=== PATIENT | female | born 1950 | race Caucasian/White ===

== ENCOUNTER 2018-02-23 18:40 | Emergency (ER) | payer OTHER ==
[~2018-02-23] VITALS: Ht 152.4 cm; Wt 68.2 kg
[~2018-02-23 18:40] MED LIST: ADVAIR 500/501 DISK INH; DESERYL100 MG PO; LEXAPRO20 MG PO; MULTIPLE VITAMI1 TA1 PO; OMEPRAZOLE40 MG PO; SINGULAIR10 MG PO; SPIRIVA18 MCG INH; TORADOL10 MG PO
[2018-02-23 19:10] VITALS: BP 159/109; Ht 152.4 cm; Wt 68.2 kg
[2018-02-23] MEDS ORDERED: LOVASTATIN10 MG PO (19:13)
[2018-02-23] MEDS ORDERED: BENICAR20 MG PO (19:13)
[2018-02-23] MEDS ORDERED: CLARITIN 10 MG10 MG PO (19:14)
[2018-02-23] MEDS ORDERED: PREDNISOLON5 MG/5 ML PO (19:14)
[2018-02-23] MEDS ORDERED: ULTRAM50 MG PO (19:14)
== END 2018-02-23 20:00 | disposition left against medical advice (07) ==
LOC: D.ER 18:40
DX: R21 Rash and other nonspecific skin eruption (principal)

== ENCOUNTER 2018-09-28 07:33 | Emergency (ER) | payer OTHER ==
[~2018-09-28 07:33] MED LIST changes: +BENICAR20 MG PO; +CLARITIN 10 MG10 MG PO; +LOVASTATIN10 MG PO; +PREDNISOLON5 MG/5 ML PO; +ULTRAM50 MG PO
[2018-09-28 07:34] VITALS: BMI 29.9
[2018-09-28] MEDS ORDERED: STERAPRED DS 1210 MG PO (07:48)
[2018-09-28] MEDS ORDERED: STERAPRED 5MG 65 M1 PO (07:49)
[2018-09-28] MEDS ORDERED: COSENTYX (07:52)
[2018-09-28] MEDS ORDERED: DILAUDID4 MG PO (08:07)
[2018-09-28 10:49] VITALS: BP 134/68
== END 2018-09-28 10:08 | disposition home or self-care (01) ==
LOC: D.ER 07:33
DX: M54.9 Dorsalgia, unspecified (principal)

== ENCOUNTER 2018-10-12 13:43 | Inpatient (IN) | payer OTHER ==
[~2018-10-12] VITALS: Ht 152.4 cm; Wt 68.0 kg
[~2018-10-12 13:43] MED LIST changes: +COSENTYX; +DILAUDID4 MG PO; +STERAPRED 5MG 65 M1 PO; +STERAPRED DS 1210 MG PO
[2018-10-12 15:53] VITALS: BP 150/94; BMI 29.3
--- NOTE | 2018-10-12 16:05 | NUR ---
PATIENT ADMITTED TO ROOM 2224. ALERT AND ORIENTED X 3. LUNGS DIMINISHED BILATERALLY IN ALL DASILVA. HEART SOUNDS S1 AND S2 HEARD IN ALL DASILVA. BOWEL SOUNDS ACTIVE X 4. SKIN INTACT WITHOUT REDNESS. DENIES PAIN. DENIES NEEDS. REQUESTED TO STAY IN STREET CLOTHES. DENIES NEEDS. BED LOW. CALL CHINCHILLA AND PERSONAL ITEMS IN REACH. WILL CONTINUE TO MONITOR.
[2018-10-12 16:26] LABS: BASOPHILS 0.1 % (0-2); EOSINOPHILS 0.1 % (0-7); HEMATOCRIT 41.5 % (36.0-48.0); HEMOGLOBIN 13.6 g/dL (12-16); IMMATURE GRANULOCYTES 1.8 % (0-5); LYMPHOCYTES 9.3 % (15-50); MCH 27.4 pg (26.0-34.0); MCHC 32.8 g/dL (31.0-37.0); MCV 83.5 fL (80.0-100.0); MEAN PLATELET VOLUME 8.8 fL (7.4-10.4); MONOCYTES 3.2 % (2-11); NEUTROPHILS 85.5 % (40-80); RBC 4.97 10x6/uL (4.00-5.40); RDW 17.6 % (11.5-14.5); WBC 13.9 10x3/uL (4.8-10.8)
[2018-10-12 16:30] LABS: PLATELET COUNT 268 10x3/uL (130-400)
[2018-10-12 16:35] LABS: ALKALINE PHOSPHATASE 77 U/L (46-116); ALT (SGPT) 20 U/L (10-68); BILIRUBIN - TOTAL 0.31 mg/dL (0.2-1.3); CALC OSMOLALITY 281 mosm/kg (275-300); CARBON DIOXIDE 27.8 mmol/L (21.0-32.0); CHLORIDE - SERUM 103 mmol/L (98-107); CREATININE - SERUM 0.8 mg/dL (0.6-1.3); GLUCOSE 133 mg/dL (74-106); POTASSIUM - SERUM 4.5 mmol/L (3.5-5.1); PROTEIN - SERUM 7.6 g/dL (6.4-8.2); SODIUM 139 mmol/L (136-145); UREA NITROGEN 17 mg/dL (7-18); eGFR NON AFRICAN AMERICAN 75 mL/min (90-120)
--- NOTE | 2018-10-12 16:40 | NUR ---
PATIENT BSCDS PLACED ON AND WORKING. UA COLLECTED AND TAKEN TO LAB.
[2018-10-12 17:07] LABS: APPEARANCE CLEAR (CLEAR); BILIRUBIN NEGATIVE (NEGATIVE); COLOR STRAW (YELLOW); GLUCOSE NEGATIVE (NEGATIVE); KETONE NEGATIVE (NEGATIVE); NITRITE NEGATIVE (NEGATIVE); PROTEIN NEGATIVE (NEGATIVE); UROBILINOGEN NORMAL (NORMAL)
--- NOTE | 2018-10-12 17:39 | NUR ---
IV PULLED OUT OF JAIME. RESITED TO RIGHT HAND. DENIES NEEDS. AT BEDSIDE.
[2018-10-12 20:00] VITALS: BP 144/79
[2018-10-12 21:02] LABS: CKMB 0.7 U/L (0.0-3.6); CREATINE KINASE 50 UL (21-215); TROPONIN-I < 0.017 ng/mL (0.000-0.060)
--- NOTE | 2018-10-12 21:45 | NUR ---
PT ALERT & ORIENTED. WHILE ASSESSING PT, FOUND PRESCRIPTION BOTTLE OF DILAUDID 4 MG PILLS (4 COUNT) AND BOTTLE OF TYLENOL UNDER PT'S BLANKET NEXT TO HER BODY. PT SAID HER BROUGHT THE MEDICINE UP TO HER BECAUSE SHE HADN'T GOT ANY PAIN MEDICINE WHEN SHE FIRST WAS ADMITTED EARLIER THIS DAY. HOME MED COUNTED AND SENT TO PHARMACY IN [place]. INFORMED PT SHE CAN GET IT BACK FROM PHARMACY UPON DISCHARGE.
[2018-10-13] VITALS: BP 116/72
[2018-10-13 04:00] VITALS: BP 125/68
[2018-10-13 05:52] LABS: BASOPHILS 0.1 % (0-2); HEMOGLOBIN 12.5 g/dL (12-16); IMMATURE GRANULOCYTES 1.7 % (0-5); LYMPHOCYTES 13.7 % (15-50); MCH 26.4 pg (26.0-34.0); MCHC 31.3 g/dL (31.0-37.0); MCV 84.6 fL (80.0-100.0); MEAN PLATELET VOLUME 8.9 fL (7.4-10.4); MONOCYTES 7.4 % (2-11); NEUTROPHILS 76.1 % (40-80); PLATELET COUNT 275 10x3/uL (130-400); RBC 4.73 10x6/uL (4.00-5.40); RDW 17.9 % (11.5-14.5); WBC 11.6 10x3/uL (4.8-10.8)
[2018-10-13 06:08] LABS: ANION GAP 13.7 mmol/L (8-16); CALCIUM 9.1 mg/dL (8.5-10.1); CARBON DIOXIDE 25.8 mmol/L (21.0-32.0); MAGNESIUM - SERUM 1.9 mg/dL (1.8-2.4); PHOSPHOROUS 3.3 mg/dL (2.5-4.9)
[2018-10-13 06:11] LABS: POTASSIUM - SERUM 3.5 mmol/L (3.5-5.1)
[2018-10-13 09:12] VITALS: BP 144/75
[2018-10-13 12:53] VITALS: BP 98/54
[2018-10-13 13:14] VITALS: Ht 152.4 cm; Wt 68.0 kg
[2018-10-13 17:45] VITALS: BP 97/55
--- NOTE | 2018-10-13 18:34 | NUR ---
I have reviewed this patient and I concur with the Shift Assessment completed by the Licensed Practical Nurse today this shift.
[2018-10-13 20:00] VITALS: BP 81/48
[2018-10-14] VITALS: BP 84/49
--- NOTE | 2018-10-14 03:25 | NUR ---
PT C/O BACK PAIN 10/01. GAVE DILAUDID 0.5 MG IV PUSH. COUGH NOT PRODUCTIVIE THIS SHIFT, UNABLE TO OBTAIN SPECIMEN. NO OTHER NEEDS. WILL CONTINUE TO MONITOR.
[2018-10-14 04:00] VITALS: BP 91/57
[2018-10-14 05:07] LABS: BASOPHILS 0.1 % (0-2); EOSINOPHILS 2.3 % (0-7); HEMATOCRIT 36.3 % (36.0-48.0); HEMOGLOBIN 11.4 g/dL (12-16); IMMATURE GRANULOCYTES 1.4 % (0-5); LYMPHOCYTES 10.8 % (15-50); MCH 26.8 pg (26.0-34.0); MCHC 31.4 g/dL (31.0-37.0); MCV 85.4 fL (80.0-100.0); MEAN PLATELET VOLUME 8.7 fL (7.4-10.4); MONOCYTES 6.2 % (2-11); NEUTROPHILS 79.2 % (40-80); PLATELET COUNT 234 10x3/uL (130-400); RBC 4.25 10x6/uL (4.00-5.40); RDW 18.1 % (11.5-14.5); WBC 13.8 10x3/uL (4.8-10.8)
[2018-10-14 05:17] LABS: ANION GAP 12.6 mmol/L (8-16); CALCIUM 9.3 mg/dL (8.5-10.1); CARBON DIOXIDE 24.6 mmol/L (21.0-32.0); CREATININE - SERUM 1.1 mg/dL (0.6-1.3); MAGNESIUM - SERUM 1.8 mg/dL (1.8-2.4)
[2018-10-14 05:18] LABS: PHOSPHOROUS 4.3 mg/dL (2.5-4.9); POTASSIUM - SERUM 4.2 mmol/L (3.5-5.1)
[2018-10-14 09:14] VITALS: BP 106/66
--- NOTE | 2018-10-14 09:20 | NUR ---
PT BREATHING VERY RASPY AND LOUD, HEARD HER FROM NURSING STATION WENT TO PT ROOM TO CHECK ON PT AND PT STATED SHE WAS UNABLE TO BREATHE AND NEEDS HELP, TOOK PT PULSE OX AND READING IS AT 78% CALLED FOR NC TUBING AND CALLED A RAPID. CALLED MONITORS AND WAS ADVISED BY AGRICULTURAL SYSTEMS SPECIALIST JAN PT HR IS AT 156. ADVISED NURSE YOLANDA RN IN ROOM PT HR. PT PLACED ON VS MACHINE AND JACQUELINE WITH RESPIRATORY WELL ICU NURSE AND MEDICAL BILLING CODER IN ROOM WITH PT NOW
--- NOTE | 2018-10-14 10:00 | NUR ---
PATIENT RESTING WITH NO DISTRESS, CL IN REACH
[2018-10-14 12:51] VITALS: BP 107/57
[2018-10-14 16:52] VITALS: BP 139/76
[2018-10-14 20:00] VITALS: BP 157/82
--- NOTE | 2018-10-14 22:25 | NUR ---
PT ALERT & ORIENTED. RATES PAIN 06/03. GAVE SCHEDULED MEDS. PT SHORT OF BREATH WITH LITTLE EXERTION. ASSISTED PT UP TO BEDSIDE COMMODE TO VOID. PULLED UP IN BED. NO OTHER NEEDS. WILL CONTINUE TO MONITOR.
[2018-10-15 04:00] VITALS: BP 109/60
[2018-10-15 06:05] LABS: BASOPHILS 0.1 % (0-2); EOSINOPHILS 0.2 % (0-7); HEMOGLOBIN 10.1 g/dL (12-16); IMMATURE GRANULOCYTES 0.9 % (0-5); LYMPHOCYTES 7.4 % (15-50); MCH 26.7 pg (26.0-34.0); MCHC 31.6 g/dL (31.0-37.0); MCV 84.7 fL (80.0-100.0); MEAN PLATELET VOLUME 8.8 fL (7.4-10.4); NEUTROPHILS 85.4 % (40-80); PLATELET COUNT 226 10x3/uL (130-400); RBC 3.78 10x6/uL (4.00-5.40); WBC 14.9 10x3/uL (4.8-10.8)
[2018-10-15 06:16] LABS: CALC OSMOLALITY 276 mosm/kg (275-300); CALCIUM 9.2 mg/dL (8.5-10.1); CARBON DIOXIDE 24.3 mmol/L (21.0-32.0); CHLORIDE - SERUM 106 mmol/L (98-107); GLUCOSE 102 mg/dL (74-106); MAGNESIUM - SERUM 1.7 mg/dL (1.8-2.4); SODIUM 138 mmol/L (136-145); UREA NITROGEN 16 mg/dL (7-18); eGFR NON AFRICAN AMERICAN 88 mL/min (90-120)
[2018-10-15 06:17] LABS: CREATININE - SERUM 0.7 mg/dL (0.6-1.3)
[2018-10-15 06:18] LABS: POTASSIUM - SERUM 4.6 mmol/L (3.5-5.1)
[2018-10-15 09:06] VITALS: BP 139/72
[2018-10-15 13:44] VITALS: BP 104/55
--- NOTE | 2018-10-15 15:31 | MORECARE ---
CASE MANAGEMENT DISCHARGE SUMMARY PATIENT: VAN FARIA UNIT: [id number] ADM DATE: 10/12/18 AGE: 68 : 49 SEX: F ROOM/BED: D.2224 AUTHOR: MARISOL ARMENDARIZ PHYSICIAN: REFERRING PHYSICIAN: ADRIÁN DE MD DATE OF SERVICE: 10/15/18 Discharge Plan Patient Name: VAN FARIA [facility] [facility] 1950 Planned Disposition: Home Anticipated Discharge Date: Discharge Date: Expected LOS: Initial Reviewer: [email or web address] Initial Review Date: 10/15/2018 Generated: 10/15/18 4:31 pm DCPIA - Discharge Planning Initial Assessment Updated by [email or web address]: Jessica Coyne on 10/15/18 3:30 pm * Is the patient Alert and Oriented? Yes * How many steps to enter\exit or inside your home? 3/0 * PCP Dr. Solorzano * Pharmacy [facility] on [address] * Preadmission Environment Home with Family * ADLs Partial Dependent * Partial ADLs (Assistance needed) Ambulation Bathing * Equipment Bedside Commode Nebulizer Walker * List name and contact numbers for known caregivers / representatives who currently or will assist patient after discharge: Wade Faria - spouse - H [phone] * Verbal permission to speak to the caregivers and representatives has been obtained from the patient. Yes * Community resources currently utilized Private Duty Care * Please name any agencies selected above. [facility] * Additional services required to return to the preadmission environment? Yes * Can the patient safely return to the preadmission environment? Yes * Has this patient been hospitalized within the prior 30 days at any hospital? No Patient Name: VAN FARIA Page [phone] at 1531 All edits/amendments must be made on the electronic document DICTATION DATE: 10/15/181530 FUNERAL DIRECTOR/EMBALMER/OWNER: HARMEET 10/15/181530 RPT#: [id number] DC DATE: STATUS: ADM IN [facility] [address] [place] [address] END OF REPORT
--- NOTE | 2018-10-15 15:40 | MORECARE ---
CASE MANAGEMENT DISCHARGE SUMMARY PATIENT: VAN FARIA UNIT: [id number] ADM DATE: 10/12/18 AGE: 68 : 49 SEX: F ROOM/BED: D.2224 AUTHOR: MARCELLO,DOC PHYSICIAN: REFERRING PHYSICIAN: ADRIÁN DE MD DATE OF SERVICE: 10/15/18 Discharge Plan Patient Name: VAN FARIA Facility: [facility]:[place] : 1950 Planned Disposition: Home Anticipated Discharge Date: Discharge Date: Expected LOS: Initial Reviewer: [email or web address] Initial Review Date: 10/15/2018 Generated: 10/15/18 4:40 pm Comments DCP- Discharge Planning Updated by [email or web address]: Jessica Coyne on 10/15/18 2:[address] Patient Name: VAN FARIA Admission Status: Elective Accout number: [id number] Admission Date: 10-12-2018 : 1950 Admission Diagnosis: Attending: ADRIÁN DE Current LOS: 3 Anticipated DC Date: Planned Disposition: Home Primary Insurance: [employer] CM met with patient to complete initial dc planning assessment. CM educated patient on the CM role and verbal consent given by patient to complete assessment. Patient lives at home with her spouse. At discharge patient plans to return and feels this is a safe discharge. CM discussed availability of home health, rehab services, and medical equipment. Patient states she has a career technology teacher from [facility] that comes in for 3-4 hours a day Monday through Monday. She declines need for home health. She states she may need oxygen and ANDREA signed for [facility] (states she received her nebulizer from [facility]). She will need a walk test to test for home oxygen 2 days prior to discharge. CM will continue to follow and will assist as needed with dc plans/needs. Discharge Planning Comments: Medical Officer: Jessica Coyne DCPIA - Discharge Planning Initial Assessment Updated by [email or web address]: Jessica Coyne on 10/15/18 3:30 pm * Is the patient Alert and Oriented? Yes * How many steps to enter\exit or inside your home? 3/0 * PCP Dr. Solorzano * Pharmacy [facility] [address] * Preadmission Environment Home with Family * ADLs Partial Dependent * Partial ADLs (Assistance needed) Ambulation Bathing * Equipment Bedside Commode Nebulizer Walker * List name and contact numbers for known caregivers / representatives who currently or will assist patient after discharge: Wade Faria - spouse - H [phone] C [phone] * Verbal permission to speak to the caregivers and representatives has been obtained from the patient. Yes * Community resources currently utilized Private Duty Care * Please name any agencies selected above. [facility] * Additional services required to return to the preadmission environment? Yes * Can the patient safely return to the preadmission environment? Yes * Has this patient been hospitalized within the prior 30 days at any hospital? No Coverage Notice Reviewer: [id number] Kassi Coyne Notice Issued Date-Time: 10/15/2018 15:33 Notice Type: Patient Choice Letter Notice Delivered To: Patient Relationship to Patient: Self Sonar Watchstander Name: Delivery Method: HAND - Hand Delivered Maru Days: Prior Verbal Notification: Recipient Understood Notice: Yes Recipient Signature: Yes Med Rec Note Co-signed by Attending: Coverage Notice Comment: ANDREA for Andrew Tinsley DP export: 10/15/18 2:31 p Patient Name: VAN FARIA Page [id number] at 1540 All edits/amendments must be made on the electronic document DICTATION DATE: 10/15/181538 BLASTING CLAY MINER: HARMEET 10/15/181538 RPT#: [id number] DC DATE: STATUS: ADM IN [facility] [address] [place] [address] END OF REPORT
[2018-10-15 17:13] VITALS: BP 168/69
[2018-10-15 20:00] VITALS: BP 168/78
[2018-10-16 04:00] VITALS: BP 129/69
[2018-10-16 04:28] LABS: BASOPHILS 0 % (0-2); EOSINOPHILS 0 % (0-7); HEMATOCRIT 32.9 % (36.0-48.0); HEMOGLOBIN 10.4 g/dL (12-16); LYMPHOCYTES 3.9 % (15-50); MCH 26.9 pg (26.0-34.0); MCHC 31.6 g/dL (31.0-37.0); MEAN PLATELET VOLUME 8.7 fL (7.4-10.4); MONOCYTES 1.3 % (2-11); NEUTROPHILS 93.8 % (40-80); PLATELET COUNT 208 10x3/uL (130-400); RBC 3.87 10x6/uL (4.00-5.40); RDW 17.6 % (11.5-14.5); WBC 12.7 10x3/uL (4.8-10.8)
[2018-10-16 04:44] LABS: CALCIUM 8.8 mg/dL (8.5-10.1); CARBON DIOXIDE 29.3 mmol/L (21.0-32.0); CHLORIDE - SERUM 107 mmol/L (98-107); CREATININE - SERUM 0.7 mg/dL (0.6-1.3); MAGNESIUM - SERUM 1.8 mg/dL (1.8-2.4); POTASSIUM - SERUM 4.3 mmol/L (3.5-5.1); SODIUM 142 mmol/L (136-145); eGFR NON AFRICAN AMERICAN 88 mL/min (90-120)
[2018-10-16 04:53] LABS: CALC OSMOLALITY 288 mosm/kg (275-300); GLUCOSE 221 mg/dL (74-106); UREA NITROGEN 9 mg/dL (7-18)
[2018-10-16 08:00] VITALS: BP 128/76
--- NOTE | 2018-10-16 11:29 | NUR ---
PT RESTING IN BED. NO SIGNS OF DISTRESS. IV TO RIGHT HAND PATENT NO REDNESS OR TENDERNESS. ON TELEMETRY 95 SR. ON 2L NC. DENIES ANY FUTHER NEED AT THIS TIME. CALL LIGHT IN REACH. BED LOW POSITION. NO FAMILY AT BEDSIDE AT THIS TIME.
[2018-10-16 15:10] VITALS: BP 146/73
--- NOTE | 2018-10-16 18:09 | NUR ---
I have reviewed this patient and I concur with the Shift Assessment completed by the Licensed Practical Nurse today this shift.
[2018-10-16 21:01] VITALS: BP 155/61
[2018-10-17 00:48] VITALS: BP 144/75
[2018-10-17 05:25] VITALS: BP 175/85
[2018-10-17 06:39] LABS: BASOPHILS 0 % (0-2); EOSINOPHILS 0 % (0-7); HEMATOCRIT 32.9 % (36.0-48.0); HEMOGLOBIN 10.2 g/dL (12-16); IMMATURE GRANULOCYTES 0.9 % (0-5); MCH 26.8 pg (26.0-34.0); MCV 86.4 fL (80.0-100.0); MEAN PLATELET VOLUME 9.3 fL (7.4-10.4); MONOCYTES 3.1 % (2-11); RBC 3.81 10x6/uL (4.00-5.40); RDW 17.8 % (11.5-14.5); WBC 12.7 10x3/uL (4.8-10.8)
[2018-10-17 06:48] LABS: PLATELET COUNT 271 10x3/uL (130-400)
[2018-10-17 06:49] LABS: CALC OSMOLALITY 294 mosm/kg (275-300); CARBON DIOXIDE 32.2 mmol/L (21.0-32.0); CHLORIDE - SERUM 110 mmol/L (98-107); CREATININE - SERUM 0.7 mg/dL (0.6-1.3); MAGNESIUM - SERUM 2.1 mg/dL (1.8-2.4); PHOSPHOROUS 2.3 mg/dL (2.5-4.9); POTASSIUM - SERUM 4.4 mmol/L (3.5-5.1); SODIUM 147 mmol/L (136-145); UREA NITROGEN 10 mg/dL (7-18); eGFR NON AFRICAN AMERICAN 88 mL/min (90-120)
[2018-10-17 06:56] LABS: GLUCOSE 166 mg/dL (74-106)
--- NOTE | 2018-10-17 08:46 | NUR ---
PATIENT RESTING IN BED WITH NO DISTRESS. RESPIRATIONS REGULAR AND NON-LABORED, 02 SAT 96% ON 2L NC. PATIENT REPORTS CHRONIC BACK PAIN FROM [facility]. NO NEEDS VOICED AT THIS TIME. CL IN REACH
[2018-10-17 09:19] VITALS: BP 157/80
--- NOTE | 2018-10-17 11:30 | MORECARE ---
CASE MANAGEMENT DISCHARGE SUMMARY PATIENT: VAN FARIA UNIT: [id number] ADM DATE: 10/12/18 AGE: 68 : 49 SEX: F ROOM/BED: D.2224 AUTHOR: MARCELLO,DOC PHYSICIAN: REFERRING PHYSICIAN: ADRIÁN DE MD DATE OF SERVICE: 10/17/18 Discharge Plan Patient Name: VAN FARIA Facility: [facility]:[place] : 1950 Planned Disposition: Home Anticipated Discharge Date: Discharge Date: Expected LOS: Initial Reviewer: [email or web address] Initial Review Date: 10/15/2018 Generated: 10/17/18 12:30 pm Comments DCP- Discharge Planning Updated by [email or web address]: Jessica Stanford on 10/17/18 10:[address] Walk test completed by RT. Her oxygen saturation is 94% on room air and 91% with exercise. She does not qualify for home oxygen at this time. CM will continue to follow and assist with discharge planning/needs. DCP- Discharge Planning Updated by [id number]: Jessica Coyne on 10/15/18 2:[address] Patient Name: VAN FARIA Admission Status: Elective Accout number: [id number] Admission Date: 10-12-2018 : 1950 Admission Diagnosis: Attending: ADRIÁN DE Current LOS: 3 Anticipated DC Date: Planned Disposition: Home Primary Insurance: [employer] CM met with patient to complete initial dc planning assessment. CM educated patient on the CM role and verbal consent given by patient to complete assessment. Patient lives at home with her spouse. At discharge patient plans to return and feels this is a safe discharge. CM discussed availability of home health, rehab services, and medical equipment. Patient states she has a health care attorney from [facility] that comes in for 3-4 hours a day Monday through Monday. She declines need for home health. She states she may need oxygen and ANDREA signed for [facility] (states she received her nebulizer from [facility]). She will need a walk test to test for home oxygen 2 days prior to discharge. CM will continue to follow and will assist as needed with dc plans/needs. Discharge Planning Comments: [facility]: Jessica Coyne DCPIA - Discharge Planning Initial Assessment Updated by [email or web address]: Jessica Coyne on 10/15/18 3:30 pm * Is the patient Alert and Oriented? Yes * How many steps to enter\exit or inside your home? 3/0 * PCP Dr. Solorzano * Pharmacy [facility] [address] * Preadmission Environment Home with Family * ADLs Partial Dependent * Partial ADLs (Assistance needed) Ambulation Bathing * Equipment Bedside Commode Nebulizer Walker * List name and contact numbers for known caregivers / representatives who currently or will assist patient after discharge: Wade Faria - spouse - H [phone] C [phone] * Verbal permission to speak to the caregivers and representatives has been obtained from the patient. Yes * Community resources currently utilized Private Duty Care * Please name any agencies selected above. [facility] * Additional services required to return to the preadmission environment? Yes * Can the patient safely return to the preadmission environment? Yes * Has this patient been hospitalized within the prior 30 days at any hospital? No Coverage Notice Reviewer: [id number] - Jessica Coyne Notice Issued Date-Time: 10/15/2018 15:33 Notice Type: Patient Choice Letter Notice Delivered To: Patient Relationship to Patient: Self Hospital Secretary Name: Delivery Method: HAND - Hand Delivered Maru Days: Prior Verbal Notification: Recipient Understood Notice: Yes Recipient Signature: Yes Med Rec Note Co-signed by Attending: Coverage Notice Comment: ANDREA for Andrew Laureano DP export: 10/15/18 2:40 p Patient Name: VAN FARIA Page [phone] at 1130 All edits/amendments must be made on the electronic document DICTATION DATE: 10/17/18 1129 DOOR FITTER: DM 10/17/18 1129 RPT#: [id number] DC DATE: STATUS: ADM IN [facility] [address] [place] [address] END OF REPORT
[2018-10-17 12:56] VITALS: BP 158/82
[2018-10-17 18:33] VITALS: BP 155/80
--- NOTE | 2018-10-17 19:45 | NUR ---
PT SITTING UP IN BED WITHOUT DISTRESS, ALERT AND ORIENTED. O2 2L/NC. EXP WHEEZES HEARD ON AUSCULTATION. IV RIGHT AC INFUSING NS @ 50, NO REDNESS OR SWELLING AT INSERTION SITE. REFUSES SCDS. HR 91 SR PER TELE. STATES PAIN IN BACK 5/10 AT THIS TIME, JUST RECIEVED ULTRAM. BED LOWEST POSITION, SRX2, CL IN REACH. WILL CTM
[2018-10-17 20:00] VITALS: BP 165/85
--- NOTE | 2018-10-17 22:20 | NUR ---
HS MEDS GIVEN WITHOUT DIFFICULTY. REQUESTED AND GIVEN TYLENOL FOR PAIN 6/10 IN BACK. ASSISTED PT ONTO BEDSIDE COMMODE AND BACK TO BED. PT SOB AND AUDIBLE WHEEZES HEARD. CALLED RESP FOR BREATHING TRX. RESP TO BEDSIDE TO ADMINISTER TRX. WILL CTM
[2018-10-18] VITALS: BP 153/81
[2018-10-18 04:00] VITALS: BP 145/93
--- NOTE | 2018-10-18 04:15 | NUR ---
ASSISTED PT WITH SITTING UP FURTHER IN BED FOR COMFORT. STATES NO PAIN AT THIS TIME. IV TUBING CHANGED PER POLICY. PT REFUSES SCDS. CL IN REACH, WILL CTM
[2018-10-18 05:09] LABS: BASOPHILS 0 % (0-2); EOSINOPHILS 0 % (0-7); HEMATOCRIT 32.9 % (36.0-48.0); IMMATURE GRANULOCYTES 1.3 % (0-5); MCH 26.2 pg (26.0-34.0); MCHC 30.4 g/dL (31.0-37.0); MCV 86.4 fL (80.0-100.0); MONOCYTES 2.2 % (2-11); NEUTROPHILS 86.5 % (40-80); PLATELET COUNT 274 10x3/uL (130-400); RBC 3.81 10x6/uL (4.00-5.40); RDW 17.8 % (11.5-14.5); WBC 11.2 10x3/uL (4.8-10.8)
[2018-10-18 05:47] LABS: ALBUMIN 2.3 g/dL (3.4-5.0); ALKALINE PHOSPHATASE 67 U/L (46-116); ALT (SGPT) 20 U/L (10-68); BILIRUBIN - TOTAL 0.17 mg/dL (0.2-1.3); CALC OSMOLALITY 288 mosm/kg (275-300); CALCIUM 9.2 mg/dL (8.5-10.1); CARBON DIOXIDE 29.8 mmol/L (21.0-32.0); CHLORIDE - SERUM 107 mmol/L (98-107); CREATININE - SERUM 0.8 mg/dL (0.6-1.3); GLUCOSE 144 mg/dL (74-106); POTASSIUM - SERUM 4.4 mmol/L (3.5-5.1); PROTEIN - SERUM 6.4 g/dL (6.4-8.2); SODIUM 143 mmol/L (136-145); eGFR NON AFRICAN AMERICAN 75 mL/min (90-120)
[2018-10-18 05:48] LABS: UREA NITROGEN 16 mg/dL (7-18)
--- NOTE | 2018-10-18 07:40 | NUR ---
RECEIVED REPORT. LYING IN BED EYES CLOSED RESTING. EASILY AROUSED WITH VERBAL STIMULI. DENIES ANY NEEDS OR PAIN. CONTINUES ON 2L VIA NC. RIGHT AC IV RUNNING NS @ 50ML/HR. CALL LIGHT WITHIN REACH, FALL PRECAUTIONS IN PLACE. WILL CONTINUE TO MONITOR
[2018-10-18 09:09] VITALS: BP 164/84
--- NOTE | 2018-10-18 11:27 | NUR ---
PT SITTING UP IN CHAIR AT BEDSIDE. NO COMPLAINTS AT PRESENT. NO SOB NOTED OR VOICED. PT STATES IS SLOWLY COUGHING UP PHLEGM. OXYGEN OFF AT PRESENT. CALL LIGHT IN REACH
[2018-10-18 13:28] VITALS: BP 153/73
[2018-10-18 16:17] VITALS: BP 152/75
--- NOTE | 2018-10-18 17:33 | NUR ---
SITTING UP IN CHAIR SURFING INTERNET. RR EVEN AND UNLABORED. NO CONCERNS VOICED AT THIS TIME. CALL LIGHT WITHIN REACH, FALL PRECAUTIONS IN PLACE. WILL CONTINUE TO MONITOR
--- NOTE | 2018-10-18 19:45 | NUR ---
PT SITTING UP IN BED WITHOUT DISTRESS, ALERT AND ORIENTED. STATES PAIN 5/10, REQUESTED TORADOL WITH HS MEDS. IV RIGHT WRIST INFUSING NS @ 30. HR 92 SR PER TELE. PT NOT WEARING O2 AT THIS TIME. UPPER LOBES DIMINISHED, CRACKLES TO LOWER LOBES UPON AUSCULTATION. SOB WITH EXERTION, OCCASIONAL PRODUCTIVE COUGH WITH WHITE SPUTUM. REFUSES SCDS. BED LOWEST POSTION, SRX2, CL IN REACH
[2018-10-18 20:38] VITALS: BP 173/83
--- NOTE | 2018-10-18 21:30 | NUR ---
HS MEDS GIVEN WITHOUT DIFFICULTY. TORADOL GIVEN FOR PAIN 10/31. ASSISTED PT ON AND OFF BEDPAN TO VOID, PT REFUSED TO GET UP TO BEDSIDE COMMODE STATING SHE WAS HURTING TOO BAD TO MOVE. BS 122, NO COVERAGE PER SS. DENIES OTHER NEEDS. CL IN REACH, WILL CTM
[2018-10-19 01:22] VITALS: BP 156/76
[2018-10-19 05:40] VITALS: BP 147/83
[2018-10-19 07:14] LABS: BASOPHILS 0.1 % (0-2); EOSINOPHILS 0.6 % (0-7); HEMOGLOBIN 9.9 g/dL (12-16); IMMATURE GRANULOCYTES 3.7 % (0-5); LYMPHOCYTES 24.6 % (15-50); MCH 26.5 pg (26.0-34.0); MCHC 30.9 g/dL (31.0-37.0); MCV 85.6 fL (80.0-100.0); MEAN PLATELET VOLUME 8.9 fL (7.4-10.4); MONOCYTES 9.4 % (2-11); NEUTROPHILS 61.6 % (40-80); PLATELET COUNT 258 10x3/uL (130-400); RBC 3.74 10x6/uL (4.00-5.40); RDW 17.7 % (11.5-14.5); WBC 10.2 10x3/uL (4.8-10.8)
[2018-10-19 07:42] LABS: ALBUMIN 2.2 g/dL (3.4-5.0); ALKALINE PHOSPHATASE 69 U/L (46-116); ALT (SGPT) 18 U/L (10-68); BILIRUBIN - TOTAL 0.19 mg/dL (0.2-1.3); CALCIUM 9.2 mg/dL (8.5-10.1); CARBON DIOXIDE 31.2 mmol/L (21.0-32.0); CHLORIDE - SERUM 108 mmol/L (98-107); CREATININE - SERUM 0.8 mg/dL (0.6-1.3); GLUCOSE 102 mg/dL (74-106); PROTEIN - SERUM 5.9 g/dL (6.4-8.2); SODIUM 146 mmol/L (136-145); eGFR NON AFRICAN AMERICAN 75 mL/min (90-120)
[2018-10-19 07:43] LABS: CALC OSMOLALITY 293 mosm/kg (275-300); POTASSIUM - SERUM 3.4 mmol/L (3.5-5.1); UREA NITROGEN 21 mg/dL (7-18)
[2018-10-19 08:50] VITALS: BP 163/82
[2018-10-19 12:57] VITALS: BP 177/83
--- NOTE | 2018-10-19 13:37 | NUR ---
Rehab Prescreening Consult recieved and the chart has been reviewed. [facility] and will require a preauth. She has a PT eval but will also need an OT. Once completed all information will be submitted to them for review. Ruby Burrell RN Clinical Liaison, Rehab
--- NOTE | 2018-10-19 13:49 | NUR ---
NUTRITION F/U CHART REVIEWED. USING AVAILABLE INFORMATION PT REMAINS AT LOW NUTRITIONAL RISK. RD FOLLOWING
--- NOTE | 2018-10-19 13:55 | MORECARE ---
CASE MANAGEMENT DISCHARGE SUMMARY PATIENT: VAN FARIA UNIT: [id number] ADM DATE: 10/12/18 AGE: 68 : 49 SEX: F ROOM/BED: D.2224 AUTHOR: MARCELLO,DOC PHYSICIAN: REFERRING PHYSICIAN: ADRIÁN DE MD DATE OF SERVICE: 10/19/18 Discharge Plan Patient Name: VAN FARIA Facility[facility]:[place] : 1950 Planned Disposition: Home Anticipated Discharge Date: Discharge Date: Expected LOS: Initial Reviewer: [email or web address] Initial Review Date: 10/15/2018 Generated: 10/19/18 2:55 pm Comments DCP- Discharge Planning Updated by [email or web address]: Jessica Coyne on 10/19/18 12:[address] Received an order for inpatient rehab. Patient states she would like a rehab screen. She states that her has medical issues and they are raising a 10 year old and she feels like she needs to be stronger prior to going home. I informed her that she will need insurance authorization prior to going to inpatient rehab, voices understanding. She does not want me to refer her to a skilled facility at this time. CM will continue to follow and assist with discharge planning/needs. DCP- Discharge Planning Updated by [email or web address]: Jessica Coyne on 10/17/18 10:[address] Walk test completed by RT. Her oxygen saturation is 94% on room air and 91% with exercise. She does not qualify for home oxygen at this time. CM will continue to follow and assist with discharge planning/needs. DCP- Discharge Planning Updated by [email or web address]: Jessica Coyne on 10/15/18 2:[address] Patient Name: VAN FARIA Admission Status: Elective Accout number: [id number] Admission Date: 10-12-2018 : 1950 Admission Diagnosis: Attending: ADRIÁN DE Current LOS: 3 Anticipated DC Date: Planned Disposition: Home Primary [facility] CM met with patient to complete initial dc planning assessment. CM educated patient on the CM role and verbal consent given by patient to complete assessment. Patient lives at home with her spouse. At discharge patient plans to return and feels this is a safe discharge. CM discussed availability of home health, rehab services, and medical equipment. Patient states she has a career law clerk from [facility] that comes in for 3-4 hours a day Monday through Monday. She declines need for home health. She states she may need oxygen and ANDREA signed for [facility] (states she received her nebulizer from [facility]). She will need a walk test to test for home oxygen 2 days prior to discharge. CM will continue to follow and will assist as needed with dc plans/needs. Discharge Planning Comments: Environmental Maintenance Worker: Jessica Coyne DCPIA - Discharge Planning Initial Assessment Updated by [email or web address]: Jessica Coyne on 10/15/18 3:30 pm * Is the patient Alert and Oriented? Yes * How many steps to enter\exit or inside your home? 3/0 * PCP Dr. Solorzano * [facility] [address] * Preadmission Environment Home with Family * ADLs Partial Dependent * Partial ADLs (Assistance needed) Ambulation Bathing * Equipment Bedside Commode Nebulizer Walker * List name and contact numbers for known caregivers / representatives who currently or will assist patient after discharge: Wade Faria - spouse - H [phone] C [phone] * Verbal permission to speak to the caregivers and representatives has been obtained from the patient. Yes * Community resources currently utilized Private Duty Care * Please name any agencies selected above. [facility] * Additional services required to return to the preadmission environment? Yes * Can the patient safely return to the preadmission environment? Yes * Has this patient been hospitalized within the prior 30 days at any hospital? No Coverage Notice Reviewer: [id number] - Jessica Coyne Notice Issued Date-Time: 10/15/2018 15:33 Notice Type: Patient Choice Letter Notice Delivered To: Patient Relationship to Patient: Self Boilerhouse Mechanic Name: Delivery Method: HAND - Hand Delivered Maru Days: Prior Verbal Notification: Recipient Understood Notice: Yes Recipient Signature: Yes Med Rec Note Co-signed by Attending: Coverage Notice Comment: ANDREA for [facility] Last DP export: 10/17/18 10:30 a Patient Name: VAN FARIA Page [phone] Electronically Signed by [facility] on 10/19/18 at 1355 All edits/amendments must be made on the electronic document DICTATION DATE: 10/19/18 1354 SPLICER HELPER: HARMEET 10/19/18 1354 RPT#: [id number] DC DATE: STATUS: ADM IN [facility] [address] [place] [address] END OF REPORT
--- NOTE | 2018-10-19 18:45 | NUR ---
PATIENT IN BED WITH IV INTACT. NO COMPLAINTS OR SIGNS OF DISTRESS. FAMILY AT BEDSIDE. CALL LIGHT WITHIN REACH.
[2018-10-19 20:22] VITALS: BP 164/75
--- NOTE | 2018-10-19 20:55 | NUR ---
PT ALERT & ORIENTED. C/O BACK PAIN 10/01. GAVE TRAMADOL 100 MG PO AND SCHEDULED MEDS. FSBS 113 - NO COVERAGE PER SS. ASSISTED PT UP TO BEDSIDE COMMODE. PT HAVING LOOSE STOOLS. COMPLETE ASSESSMENT PER FLOW-SHEET. NO OTHER NEEDS. WILL CONTINUE TO MONITOR.
[2018-10-20 05:18] LABS: BASOPHILS 0.1 % (0-2); EOSINOPHILS 0.6 % (0-7); HEMATOCRIT 31.2 % (36.0-48.0); HEMOGLOBIN 9.6 g/dL (12-16); IMMATURE GRANULOCYTES 4.3 % (0-5); LYMPHOCYTES 22.5 % (15-50); MCH 26.2 pg (26.0-34.0); MCHC 30.8 g/dL (31.0-37.0); MEAN PLATELET VOLUME 8.8 fL (7.4-10.4); MONOCYTES 6.7 % (2-11); NEUTROPHILS 65.8 % (40-80); PLATELET COUNT 254 10x3/uL (130-400); RBC 3.67 10x6/uL (4.00-5.40); RDW 17.4 % (11.5-14.5); WBC 10.8 10x3/uL (4.8-10.8)
[2018-10-20 05:26] VITALS: BP 160/81
[2018-10-20 05:38] LABS: ALBUMIN 2.2 g/dL (3.4-5.0); ALKALINE PHOSPHATASE 67 U/L (46-116); ALT (SGPT) 14 U/L (10-68); CALC OSMOLALITY 292 mosm/kg (275-300); CALCIUM 9.4 mg/dL (8.5-10.1); CARBON DIOXIDE 31.9 mmol/L (21.0-32.0); CHLORIDE - SERUM 110 mmol/L (98-107); CREATININE - SERUM 0.7 mg/dL (0.6-1.3); GLUCOSE 86 mg/dL (74-106); MAGNESIUM - SERUM 1.9 mg/dL (1.8-2.4); POTASSIUM - SERUM 3.6 mmol/L (3.5-5.1); PROTEIN - SERUM 5.6 g/dL (6.4-8.2); SODIUM 147 mmol/L (136-145); UREA NITROGEN 19 mg/dL (7-18); eGFR NON AFRICAN AMERICAN 88 mL/min (90-120)
--- NOTE | 2018-10-20 07:59 | NUR ---
AAOX4. SHALLOW BREATHING, 02 PRESENT, NOT CURRENTLY WEARING, ON TELEMETRY, USES BED SIDE COMMODE WITH ONE PERSON ASSIST. C/O DISCOMFORT IN LOWER BACK, BED LOWERED AND LOCKED, CALL LIGHT WITHIN REACH. CPOC
[2018-10-20 08:42] VITALS: BP 156/83
--- NOTE | 2018-10-20 09:05 | NUR ---
APPLIED HEATING PAD TO BACK FOR DISCOMFORT, ADMINISTERED PRN TYLENOL FOR PAIN /10. DENIES ANY OTHER NEEDS OR DISCOMFORTS, BED LOWERED AND LOCKED, CALL LIGHT WITHIN REACH. CPOC
[2018-10-20 12:37] VITALS: BP 135/89
[2018-10-20 13:09] LABS: IMMUNOGLOBULIN E 241 IU/mL (6-495)
[2018-10-20 18:21] VITALS: BP 124/81
[2018-10-20 21:43] VITALS: BP 171/87
--- NOTE | 2018-10-20 23:30 | NUR ---
SUPINE IN BED, C/O PAIN IN IV SITE. WRIST APPEARS EDEMATOUS AND SKIN SURROUNDING INSERTION SITE IS REDDENED. DCd WITH CATHER INTACT. 22G RESITED TO RIGHT FOREARM, 2ND ATTEMPT. PT REQUESTS HEAT PACK. WILL CONTINUE TO MONITOR.
[2018-10-21 00:56] VITALS: BP 169/80
--- NOTE | 2018-10-21 03:23 | NUR ---
I have reviewed this patient and I concur with the Shift Assessment completed by the Licensed Practical Nurse today this shift.
[2018-10-21 04:00] VITALS: BP 159/81
[2018-10-21 05:25] LABS: BASOPHILS 0.1 % (0-2); EOSINOPHILS 1.6 % (0-7); HEMATOCRIT 32.4 % (36.0-48.0); HEMOGLOBIN 10.2 g/dL (12-16); IMMATURE GRANULOCYTES 5.1 % (0-5); LYMPHOCYTES 24.9 % (15-50); MCH 26.8 pg (26.0-34.0); MCHC 31.5 g/dL (31.0-37.0); MCV 85.3 fL (80.0-100.0); MEAN PLATELET VOLUME 8.8 fL (7.4-10.4); MONOCYTES 7.1 % (2-11); NEUTROPHILS 61.2 % (40-80); PLATELET COUNT 272 10x3/uL (130-400); RDW 17.5 % (11.5-14.5); WBC 11.1 10x3/uL (4.8-10.8)
[2018-10-21 05:43] LABS: ALBUMIN 2.4 g/dL (3.4-5.0); ANION GAP 7.1 mmol/L (8-16); BILIRUBIN - TOTAL 0.24 mg/dL (0.2-1.3); CALCIUM 9.5 mg/dL (8.5-10.1); CARBON DIOXIDE 33.4 mmol/L (21.0-32.0); POTASSIUM - SERUM 3.5 mmol/L (3.5-5.1); PROTEIN - SERUM 5.8 g/dL (6.4-8.2)
[2018-10-21 05:44] LABS: CREATININE - SERUM 0.9 mg/dL (0.6-1.3)
--- NOTE | 2018-10-21 08:48 | NUR ---
AAOX4. ON 2LPM VIA NC, HEATING PACK APPLIED TO THORACIC BACK, IV TO RIGHT FOREARM, REDNESS AROUND SITE, SALINE LOCKED, C/O DISCOMFORT TO SITE, ONE PERSON ASSIST TO BED SIDE COMMODE, DENIES ANY CURRENT NEEDS OR DISCOMFORTS, BED LOWERED AND LOCKED, CALL LIGHT WITHIN REACH. CPOC
[2018-10-21 09:25] VITALS: BP 183/84
[2018-10-21 12:32] VITALS: BP 178/77
[2018-10-21 17:39] VITALS: BP 152/83
--- NOTE | 2018-10-21 18:45 | NUR ---
aaox4. on 2lpm via nc, iv to left hand, patent, infusing d51/2 ns at 50ml/hr, heat packs applied to back and states "really helped with the pain." shortness of breath upon exertion. tyelnol given once during shift. denies any current needs or discomforts, bed lowered and locked, call light within reach. cpoc
--- NOTE | 2018-10-21 19:09 | NUR ---
I have reviewed this patient and I concur with the Shift Assessment completed by the Licensed Practical Nurse today this shift.
[2018-10-21 20:59] VITALS: BP 170/82
--- NOTE | 2018-10-21 23:00 | NUR ---
PT AMBULATING IN HALLWAY, WITHOUT OXYGEN. GUIDED PT BACK TO ROOM, PT BEGAN MAKING SOME STATEMENTS THAN WERE CONFUSED. REORIENTED. SPO2 87% ON 3L. INCREASED TO 3.5 AND HUMIDIFIED. PT SITTING UP ON SIDE OF BED, O2 RAISED TO 95-97%. BEGAN TO DROP WHEN PT LAID BACK. INFORMED TO TRY TO SIT UPRIGHT IN BED.
--- NOTE | 2018-10-22 00:30 | NUR ---
PT AWAKE, HAVING DIFFICULTY BREATHING. REAPPLIED O2, SPO2 94%. PT BEGAN TO CALM AND STATED SHE HAD NO PAIN, HER ONLY TROUBLE WAS BREATHING. RESPIRATORY NOTIFIED. WILL CONTINUE TO MONITOR.
[2018-10-22 05:53] VITALS: BP 175/80
[2018-10-22 06:42] LABS: HEMATOCRIT 31.4 % (36.0-48.0); HEMOGLOBIN 9.8 g/dL (12-16); MCH 26.6 pg (26.0-34.0); MCHC 31.2 g/dL (31.0-37.0); MCV 85.3 fL (80.0-100.0); MEAN PLATELET VOLUME 8.8 fL (7.4-10.4); PLATELET COUNT 249 10x3/uL (130-400); RBC 3.68 10x6/uL (4.00-5.40); RDW 17.4 % (11.5-14.5); WBC 11.9 10x3/uL (4.8-10.8)
[2018-10-22 06:53] LABS: ALBUMIN 2.2 g/dL (3.4-5.0); ALKALINE PHOSPHATASE 65 U/L (46-116); ALT (SGPT) 23 U/L (10-68); BILIRUBIN - TOTAL 0.26 mg/dL (0.2-1.3); CALC OSMOLALITY 290 mosm/kg (275-300); CALCIUM 8.9 mg/dL (8.5-10.1); CARBON DIOXIDE 32.8 mmol/L (21.0-32.0); CHLORIDE - SERUM 107 mmol/L (98-107); CREATININE - SERUM 0.8 mg/dL (0.6-1.3); GLUCOSE 97 mg/dL (74-106); POTASSIUM - SERUM 3.5 mmol/L (3.5-5.1); PROTEIN - SERUM 5.5 g/dL (6.4-8.2); SODIUM 145 mmol/L (136-145); UREA NITROGEN 19 mg/dL (7-18); eGFR NON AFRICAN AMERICAN 75 mL/min (90-120)
[2018-10-22 09:00] VITALS: BP 161/76
[2018-10-22 09:30] LABS: ANISOCYTOSIS OCC; EOSINOPHILS 4 % (0-7); LYMPHOCYTES 11 % (15-50); MONOCYTES 15 % (2-11); NEUTROPHILS 67 % (40-80); PLATELET ESTIMATE NORMAL
--- NOTE | 2018-10-22 11:22 | MORECARE ---
CASE MANAGEMENT DISCHARGE SUMMARY PATIENT: VAN FARIA UNIT: [id number] ADM DATE: 10/12/18 AGE: 68 : 49 SEX: F ROOM/BED: D.2224 AUTHOR: MARCELLO,DOC PHYSICIAN: REFERRING PHYSICIAN: ADRIÁN DE MD DATE OF SERVICE: 10/22/18 Discharge Plan Patient Name: VAN FARIA Facility: [facility]:[place] : 1950 Planned Disposition: Home Anticipated Discharge Date: Discharge Date: Expected LOS: Initial Reviewer: [email or web address] Initial Review Date: 10/15/2018 Generated: 10/22/18 12:22 pm Comments DCP- Discharge Planning Updated by [email or web address]: Jessica Coyne on 10/22/18 10:[address] Awaiting insurance authorization for rehab. I called Dr. Kidd's office about the kyphoplasy scheduled on Monday, October 24 and informed Rocio that this will need to be postponed at least 3 days post discharge. She states she will inform Machelle and Dr. Kidd, she does not see her on the schedule at this time. CM will continue to follow and assist with discharge planning/needs. DCP- Discharge Planning Updated by [id number]: Jessica Stanford on 10/19/18 12:[address] Received an order for inpatient rehab. Patient states she would like a rehab screen. She states that her has medical issues and they are raising a 10 year old and she feels like she needs to be stronger prior to going home. I informed her that she will need insurance authorization prior to going to inpatient rehab, voices understanding. She does not want me to refer her to a skilled facility at this time. CM will continue to follow and assist with discharge planning/needs. DCP- Discharge Planning Updated by [email or web address]: Jessica Coyne on 10/17/18 10:[address] Walk test completed by RT. Her oxygen saturation is 94% on room air and 91% with exercise. She does not qualify for home oxygen at this time. CM will continue to follow and assist with discharge planning/needs. DCP- Discharge Planning Updated by [id number]: Jessica Coyne on 10/15/18 2:[address] Patient Name: VAN FARIA Admission Status: Elective Accout number: [id number] Admission Date: 10-12-2018 : 1950 Admission Diagnosis: Attending: ARDIÁN DE Current LOS: 3 Anticipated DC Date: Planned Disposition: Home Primary Insurance: [employer] CM met with patient to complete initial dc planning assessment. CM educated patient on the CM role and verbal consent given by patient to complete assessment. Patient lives at home with her spouse. At discharge patient plans to return and feels this is a safe discharge. CM discussed availability of home health, rehab services, and medical equipment. Patient states she has a certified caregiver from [facility] that comes in for 3-4 hours a day Monday through Monday. She declines need for home health. She states she may need oxygen and ANDREA signed for [facility] (states she received her nebulizer from [facility]). She will need a walk test to test for home oxygen 2 days prior to discharge. CM will continue to follow and will assist as needed with dc plans/needs. Discharge Planning Comments: Pattern Hanger: Jessica Coyne DCPIA - Discharge Planning Initial Assessment Updated by [email or web address]: Jessica Coyne on 10/15/18 3:30 pm * Is the patient Alert and Oriented? Yes * How many steps to enter\exit or inside your home? 3/0 * PCP Dr. Solorzano * Pharmacy [facility] [address] * Preadmission Environment Home with Family * ADLs Partial Dependent * Partial ADLs (Assistance needed) Ambulation Bathing * Equipment Bedside Commode Nebulizer Walker * List name and contact numbers for known caregivers / representatives who currently or will assist patient after discharge: Wade Faria - spouse - H [phone] * Verbal permission to speak to the caregivers and representatives has been obtained from the patient. Yes * Community resources currently utilized Private Duty Care * Please name any agencies selected above. [facility] * Additional services required to return to the preadmission environment? Yes * Can the patient safely return to the preadmission environment? Yes * Has this patient been hospitalized within the prior 30 days at any hospital? No Coverage Notice Reviewer: [id number] - Jessica Coyne Notice Issued Date-Time: 10/15/2018 15:33 Notice Type: Patient Choice Letter Notice Delivered To: Patient Relationship to Patient: Self Development Intern Name: Delivery Method: HAND - Hand Delivered Maru Days: Prior Verbal Notification: Recipient Understood Notice: Yes Recipient Signature: Yes Med Rec Note Co-signed by Attending: Coverage Notice Comment: ANDREA for Andrew Tinsley DP export: 10/19/18 12:55 p Patient Name: VAN FARIA Page [phone] at 1122 All edits/amendments must be made on the electronic document DICTATION DATE: 10/22/18 112 CHANNEL WORKER: HARMEET 10/22/18 1122 RPT#: [id number] DC DATE: STATUS: ADM IN [facility] [address] [place] [address] END OF REPORT
[2018-10-22 13:45] VITALS: BP 178/84
[2018-10-22 14:35] LABS: % SATURATION 18 % (15-55); IRON 37 ug/dl (35-150); TOTAL IRON BIND CAPACITY 196 ug/dl (260-445); UNSAT IRON BIND CAPACITY 159 ug/dl (150-375)
--- NOTE | 2018-10-22 15:15 | NUR ---
Rehab Note- Clinicals have been faxed in for review for possibe PreAuth for inpatient acute rehab stay. Will continue to follow. Thank you for this referral! Irma Noel RN Clinical Liaison, [facility] Rehab
[2018-10-22 16:43] VITALS: BP 173/87
--- NOTE | 2018-10-22 17:13 | NUR ---
OT NOTE: PT COMPLETED BED MOB WITH MIN A. PT COMPLETED ADL MOB WITH CGA. PT COMPLETED SIMPLE GROOMING WITH SET UP. PT COMPLETED UE AROM . THANK YOU, JOSE EDUARDO MCKEON
--- NOTE | 2018-10-22 18:55 | NUR ---
\I have reviewed this patient and I concur with the Shift Assessment completed by the Licensed Practical Nurse today this shift.
--- NOTE | 2018-10-22 19:40 | NUR ---
PT SITTING UP IN BEDSIDE CHAIR. IV LEFT HAND INFUSING D5 1/2NS @ 50. REFUSES SCDS. LOWER LOBES DIMINISHED, EXP WHEEZED HEARD IN UPPER LOBES ON AUSCULTATION. PT GETS SOB WITH EXERTION. REPORTS OCCASIONAL PRODUCTIVE COUGH, DOES NOT KNOW WHAT COLOR SPUTUM. DENIES OTHER NEEDS AT THIS TIME. CL IN REACH, WILL CTM
[2018-10-22 20:00] VITALS: BP 172/86
[2018-10-23 01:17] VITALS: BP 142/75
[2018-10-23 05:20] VITALS: BP 179/89
[2018-10-23 06:04] LABS: ALBUMIN 2.3 g/dL (3.4-5.0); ANION GAP 9.9 mmol/L (8-16); BILIRUBIN - TOTAL 0.22 mg/dL (0.2-1.3); CARBON DIOXIDE 30.5 mmol/L (21.0-32.0); CREATININE - SERUM 0.9 mg/dL (0.6-1.3); POTASSIUM - SERUM 3.4 mmol/L (3.5-5.1); PROTEIN - SERUM 5.5 g/dL (6.4-8.2)
[2018-10-23 06:09] LABS: BASOPHILS 0.1 % (0-2); EOSINOPHILS 0.9 % (0-7); HEMATOCRIT 31.2 % (36.0-48.0); HEMOGLOBIN 9.6 g/dL (12-16); IMMATURE GRANULOCYTES 4.9 % (0-5); LYMPHOCYTES 22.7 % (15-50); MCH 26.3 pg (26.0-34.0); MCHC 30.8 g/dL (31.0-37.0); MCV 85.5 fL (80.0-100.0); NEUTROPHILS 63.4 % (40-80); PLATELET COUNT 269 10x3/uL (130-400); RBC 3.65 10x6/uL (4.00-5.40); RDW 17.6 % (11.5-14.5); WBC 11.8 10x3/uL (4.8-10.8)
[2018-10-23 09:00] VITALS: BP 131/73; BP 140/74
--- NOTE | 2018-10-23 09:47 | NUR ---
Rehab Note- Spoke with Candlucinda with April/Wendi/Alem to check on pending Authorization- stated that their sytem is currently updating & unable to look up any information at this time. Will continue to await determination. Irma Noel RN CLinical Liaison, [facility] Rehab
--- NOTE | 2018-10-23 10:05 | NUR ---
PT STILL ASLEEP WHEN I CAME IN FOR MORNING MEDS, WOKE PT UP AND SHE STATED SHE IS HAVING TERRIBLE PAINS AND UNABLE TO BREATHE DUE TO PAIN. ADMINISTERED PAIN MEDICATION AND PLACED PT NC ON PT. NO OTHER NEEDS VOICED, CONTINUE WITH PLAN OF CARE
[2018-10-23 12:00] VITALS: BP 92/55
[2018-10-23 12:11] LABS: FOLATE (FOLIC ACID) - SERUM 13.6 ng/mL (>3.0)
--- NOTE | 2018-10-23 12:51 | NUR ---
Rehab Note- Spoke with Maris with April/Naresh stated that there wasn't a pending Auth for inpatient acute rehab stay- gave me a # [phone], spoke with Elisha- stated there is a pending Auth with clinicals attatched at this time that was created yesterday Ref#[id number]. Will continue to await determination for possible inpatient acute rehab stay. Irma Noel RN CLinical Liaison, [facility] Rehab
--- NOTE | 2018-10-23 16:18 | NUR ---
Rehab Note- Received call from Maris Adame- states that the patient has been approved for a short inpatient acute rehab stay beginning 10/24. Attempted to call Rudi Lopez but phone busy at this time. Will plan on accepting the patient 10/24/18 to [facility] Acute Inpatient Rehab. Thank you for this referral! Irma Noel RN CLinical Liaison, [facility] Rehab
--- NOTE | 2018-10-23 16:25 | NUR ---
OT NOTE: PT STATED SHE WAS LATHARGIC IN AM. PT STATED BP HAD BEEN LOW IN AM. PT COMPLETED BED MOB AND EOB SITTING BALANCE WITH SPV. PT COMPLETED GROOMING TASKS AT EOB WITH SET UP. THANK YOU, JOSE EDUARDO MCKEON
[2018-10-23 17:06] VITALS: BP 102/51
--- NOTE | 2018-10-23 18:55 | NUR ---
I have reviewed this patient and I concur with the Shift Assessment completed by the Licensed Practical Nurse today this shift.
--- NOTE | 2018-10-23 19:35 | NUR ---
PT SITTING UP IN BEDSIDE CHAIR, ALERT AND ORIENTED. STATES PAIN 4/10 IN BACK. REQUESTS ULTRAM BE GIVEN WITH HS MEDS. REFUSES SCDS. NO IV ACCESS AT THIS TIME. REMINDED PT WE STILL NEED STOOL SAMPLE, VERBALIZED UNDERSTANDING. DENIES OTHER NEEDS. CL IN REACH, WILL CTM
[2018-10-23 21:07] VITALS: BP 119/57
--- NOTE | 2018-10-23 21:30 | NUR ---
PT SITTING IN BEDSIDE CHAIR, STATES PAIN IN BACK 08/01. GAVE ULTRAM ORDERED. BS 117, NO COVERAGE PER SS. DENIES OTHER NEEDS. CL IN REACH
--- NOTE | 2018-10-23 23:25 | NUR ---
ASSISTED PT INTO BED, SLIGHTLY SOB, O2 PLACED ON PT. PROVIDED PT WITH HEAT PACK FOR BACK. DENIES OTHER NEEDS. CL IN REACH, WILL CTM
[2018-10-24 00:44] VITALS: BP 114/59
[2018-10-24 05:02] VITALS: BP 111/51
[2018-10-24 06:43] LABS: BASOPHILS 0.2 % (0-2); EOSINOPHILS 1.6 % (0-7); HEMATOCRIT 32.6 % (36.0-48.0); HEMOGLOBIN 10.1 g/dL (12-16); IMMATURE GRANULOCYTES 5.5 % (0-5); LYMPHOCYTES 29.3 % (15-50); MCH 26.6 pg (26.0-34.0); MCV 85.8 fL (80.0-100.0); MEAN PLATELET VOLUME 9.2 fL (7.4-10.4); MONOCYTES 6.7 % (2-11); NEUTROPHILS 56.7 % (40-80); PLATELET COUNT 270 10x3/uL (130-400); WBC 11.6 10x3/uL (4.8-10.8)
[2018-10-24 06:55] LABS: ALBUMIN 2.4 g/dL (3.4-5.0); ANION GAP 11.1 mmol/L (8-16); BILIRUBIN - TOTAL 0.22 mg/dL (0.2-1.3); CALCIUM 9.3 mg/dL (8.5-10.1); CARBON DIOXIDE 29.4 mmol/L (21.0-32.0); CREATININE - SERUM 0.9 mg/dL (0.6-1.3); PROTEIN - SERUM 5.9 g/dL (6.4-8.2)
[2018-10-24 06:58] LABS: POTASSIUM - SERUM 4.5 mmol/L (3.5-5.1)
--- NOTE | 2018-10-24 07:30 | NUR ---
PT IS LYING IN BED,RESTING WITHOUT DISTRESS.MONITOR FOR NEEDS.
--- NOTE | 2018-10-24 08:53 | NUR ---
COMPLAINING OF 10/10 PAIN IN THE BACK, GAVE PRN TYLENOL ALONG WITH MORNING MEDS, RESTING IN BED WITH O2 ON AT 2L.
[2018-10-24 09:10] VITALS: BP 146/79
[2018-10-24] MEDS ORDERED: BACTRIM DS PO (10:06)
[2018-10-24] MEDS ORDERED: ROBAXIN500 MG PO (10:08)
[2018-10-24] MEDS ORDERED: NEURONTIN 300300 MG PO (10:09)
[2018-10-24] MEDS ORDERED: MUCINEX600 MG PO (10:10)
[2018-10-24] MEDS ORDERED: FLUTICASONE PRO16 GM NASAL (10:11)
[2018-10-24] MEDS ORDERED: MIRALAX17 GM PO (10:11)
[2018-10-24] MEDS ORDERED: PREDNISONE20 MG PO (10:12)
--- NOTE | 2018-10-24 11:28 | MORECARE ---
CASE MANAGEMENT DISCHARGE SUMMARY PATIENT: VAN FARIA UNIT: [id number] ADM DATE: 10/12/18 AGE: 68 : 49 SEX: F ROOM/BED: D.2224 AUTHOR: MARCELLO,DOC PHYSICIAN: REFERRING PHYSICIAN: ADRIÁN DE MD DATE OF SERVICE: 10/24/18 Discharge Plan Patient Name: VAN FARIA Facility: [facility]:[place] : 1950 Planned Disposition: Home Anticipated Discharge Date: Discharge Date: Expected LOS: Initial Reviewer: [email or web address] Initial Review Date: 10/15/2018 Generated: 10/24/18 12:28 pm Comments DCP- Discharge Planning Updated by [email or web address]: Jessica Coyne on 10/24/18 10:[address] Patient in agreement to discharge to inpatient rehab today. I received acceptance from Irma in inpatient rehab, they will call with a bed number. CM will continue to follow and assist with discharge planning/needs. DCP- Discharge Planning Updated by [id number]: Jessica Coyne on 10/22/18 10:[address] Awaiting insurance authorization for rehab. I called Dr. Kidd's office about the kyphoplasy scheduled on October 24 and informed Rocio that this will need to be postponed at least 3 days post discharge. She states she will inform Machelle and Dr. Kidd, she does not see her on the schedule at this time. CM will continue to follow and assist with discharge planning/needs. DCP- Discharge Planning Updated by [id number]: Jessica Coyne on 10/19/18 12:[address] Received an order for inpatient rehab. Patient states she would like a rehab screen. She states that her has medical issues and they are raising a 10 year old and she feels like she needs to be stronger prior to going home. I informed her that she will need insurance authorization prior to going to inpatient rehab, voices understanding. She does not want me to refer her to a skilled facility at this time. CM will continue to follow and assist with discharge planning/needs. DCP- Discharge Planning Updated by [id number]: Jessica Coyne on 10/17/18 10:[address] Walk test completed by RT. Her oxygen saturation is 94% on room air and 91% with exercise. She does not qualify for home oxygen at this time. CM will continue to follow and assist with discharge planning/needs. DCP- Discharge Planning Updated by [email or web address]: Jessica Coyne on 10/15/18 2:[address] Patient Name: VAN FARIA Admission Status: Elective Accout number: [id number] Admission Date: 10-12-2018 : 1950 Admission Diagnosis: Attending: ADRIÁN DE Current LOS: 3 Anticipated DC Date: Planned Disposition: Home Primary Insurance: [employer] CM met with patient to complete initial dc planning assessment. CM educated patient on the CM role and verbal consent given by patient to complete assessment. Patient lives at home with her spouse. At discharge patient plans to return and feels this is a safe discharge. CM discussed availability of home health, rehab services, and medical equipment. Patient states she has a rn progressive care unit from [facility] that comes in for 3-4 hours a day Monday through Monday. She declines need for home health. She states she may need oxygen and ANDREA signed for [facility] (states she received her nebulizer from [facility]). She will need a walk test to test for home oxygen 2 days prior to discharge. CM will continue to follow and will assist as needed with dc plans/needs. Discharge Planning Comments: Film Librarian: Jessica Coyne DCPIA - Discharge Planning Initial Assessment Updated by [id number]: Jessica Coyne on 10/15/18 3:30 pm * Is the patient Alert and Oriented? Yes * How many steps to enter\exit or inside your home? 3/0 * PCP Dr. Solorzano * Pharmacy [facility] [address] * Preadmission Environment Home with Family * ADLs Partial Dependent * Partial ADLs (Assistance needed) Ambulation Bathing * Equipment Bedside Commode Nebulizer Walker * List name and contact numbers for known caregivers / representatives who currently or will assist patient after discharge: Wade Faria - spouse - H [phone] C [phone] * Verbal permission to speak to the caregivers and representatives has been obtained from the patient. Yes * Community resources currently utilized Private Duty Care * Please name any agencies selected above. [facility] * Additional services required to return to the preadmission environment? Yes * Can the patient safely return to the preadmission environment? Yes * Has this patient been hospitalized within the prior 30 days at any hospital? No Coverage Notice Reviewer: [id number] Kassi Coyne Notice Issued Date-Time: 10/15/2018 15:33 Notice Type: Patient Choice Letter Notice Delivered To: Patient Relationship to Patient: Self Road Packer Operator Name: Delivery Method: HAND - Hand Delivered Maru Days: Prior Verbal Notification: Recipient Understood Notice: Yes Recipient Signature: Yes Med Rec Note Co-signed by Attending: Coverage Notice Comment: ANDREA for Andrew Reviewer: [id number] Kassi Coyne Notice Issued Date-Time: 10/24/2018 11:19 Notice Type: IM Discharge Notice Notice Delivered To: Patient Relationship to Patient: Self Road Packer Operator Name: Delivery Method: HAND - Hand Delivered Maru Days: Prior Verbal Notification: Recipient Understood Notice: Yes Recipient Signature: Yes Med Rec Note Co-signed by Attending: Coverage Notice Comment: IMM explained, signed, given, copy placed in MR Last DP export: 10/22/18 10:22 am Patient Name: VAN FARIA Page [id number] at 1128 All edits/amendments must be made on the electronic document DICTATION DATE: 10/24/18 112 TREATING AND PUMPING SUPERVISOR: HARMEET 10/24/18 112 RPT#: [id number] DC DATE: STATUS: ADM IN [facility] [address] [place] [address] END OF REPORT
[2018-10-24 13:24] VITALS: BP 140/68
--- NOTE | 2018-10-24 14:01 | NUR ---
PT DC TO INHOUSE REHAB, CALLED AND GAVE REPORT TO RON, NO NEEDS VOICED FROM PT, PT TAKEN DOWN VIA WC BY SENIOR WIND ENERGY CONSULTANT
== END 2018-10-24 14:02 | DRG 193 ==
LOC: D.RAD 13:43 → D.MS 15:38
PROVIDERS: Family Medicine; Internal Medicine Pulmonary Disease; ADMIT Internal Medicine Nephrology; ATTEND Internal Medicine Nephrology
DX: J18.9 Pneumonia, unspecified organism (principal); J96.01 Acute respiratory failure with hypoxia; M48.54XA Collapsed vertebra, not elsewhere classified, thoracic region, initial encounter for fracture; J44.1 Chronic obstructive pulmonary disease with (acute) exacerbation; J44.0 Chronic obstructive pulmonary disease with (acute) lower respiratory infection; I10 Essential (primary) hypertension

== ENCOUNTER 2018-10-24 13:45 | Inpatient (IN) | payer MEDICARE ==
[~2018-10-24] VITALS: Ht 152.4 cm; Wt 74.0 kg
--- NOTE | 2018-10-24 13:30 | NUR ---
RECIEVED BY WC FROM ACUTE TO ROOM 1118B.ORIENTED TO ROOM AND SURROUNDINGS.
[~2018-10-24 13:45] MED LIST changes: +BACTRIM DS PO; +FLUTICASONE PRO16 GM NASAL; +MIRALAX17 GM PO; +MUCINEX600 MG PO; +NEURONTIN 300300 MG PO; +PREDNISONE20 MG PO; +ROBAXIN500 MG PO
--- NOTE | 2018-10-24 14:21 | NUR ---
OT NOTE: PT COMPLETED DRESSING AT EOB WITH SET UP. PT COMPLETED HAIR GROOMING WITH SET UP. PT COMPLETED EOB SITTING WITH SPV. PT COMPLETED SIT TO STAND WITH SBA. THAN YOU, JOSE EDUARDO MCKEON
--- NOTE | 2018-10-24 14:26 | NUR ---
OT NOTE: PT VERY LETHARGIC IN AM; FEELING BETTER LATER AND WAS ABLE TO AMB TO BATHROOM WITH MIN ASSIST; TOILETING AND GROOMING WITH CGA/MIN ASSIST. PT TO BE DCD TO REHAB IN PM. KAYLA IRBY OTR/L
[2018-10-24 14:47] VITALS: BMI 29.3
--- NOTE | 2018-10-24 15:43 | NUR ---
PATIENT ADMITTED TO REHAB FROM ACUTE FLOOR. DR. CARPENTER IS HER PCP. DME AT HOME IS A WALKER, BEDSIDE COMMODE AND A NEBULIZER. SHE HAS A PERSONAL ASBESTOS BRAKE LINING FINISHER HELPER FROM [facility].. AT DISCHARGE SHE WILL NEED AN APPOINTMENT WITH [facility] LOONEY AND HER APPOINTMENT WITH DR. LUCAS IS 12/04/18 @ 1:00. WILL CONTINUE TO FOLLOW WITH PATIENT
[2018-10-24 16:07] VITALS: BP 90/50; Ht 152.4 cm; Wt 74.0 kg
--- NOTE | 2018-10-24 16:30 | NUR ---
ADMISSION ASSMT COMPLETED.CL IN REACH.
[2018-10-24 19:44] VITALS: BP 137/44
--- NOTE | 2018-10-24 20:14 | NUR ---
ASSISTED PT TO BEDSIDE COMMODE.
--- NOTE | 2018-10-24 21:35 | NUR ---
HELP PT FILLED IN MENU.
--- NOTE | 2018-10-24 22:15 | NUR ---
ASSISTED PT TO BEDSIDE COMMODE.
--- NOTE | 2018-10-25 01:13 | NUR ---
REST IN BED, RESP EVEN, NO S/S DISTRESS. CALL LIGHT IN REACH.
--- NOTE | 2018-10-25 03:33 | NUR ---
I have reviewed this patient and I concur with the Shift Assessment completed by the Licensed Practical Nurse today this shift.
--- NOTE | 2018-10-25 04:46 | NUR ---
PT STATES: SHE IS HARD TO BREATH." CALLED RESP THERAPY. AND RESP THERAPY STAFF GIVE TREATMENT FOR PT.
--- NOTE | 2018-10-25 04:51 | NUR ---
PT STATES:"SHE FEEL BETTER AFTER HER BREATHING TREATMENT."
[2018-10-25 08:13] VITALS: BP 156/74
[2018-10-25 10:51] LABS: HEMOGLOBIN 11.1 g/dL (12-16); MCH 26.7 pg (26.0-34.0); MCHC 30.8 g/dL (31.0-37.0); MCV 86.5 fL (80.0-100.0); PLATELET COUNT 286 10x3/uL (130-400); RBC 4.16 10x6/uL (4.00-5.40); RDW 18.2 % (11.5-14.5); WBC 13.5 10x3/uL (4.8-10.8)
[2018-10-25 11:02] LABS: ANION GAP 9.3 mmol/L (8-16); CALCIUM 9.7 mg/dL (8.5-10.1); CARBON DIOXIDE 32.9 mmol/L (21.0-32.0); POTASSIUM - SERUM 4.2 mmol/L (3.5-5.1)
[2018-10-25 12:28] LABS: EOSINOPHILS 1 % (0-7); LYMPHOCYTES 18 % (15-50); MONOCYTES 14 % (2-11); NEUTROPHILS 65 % (40-80); PLATELET ESTIMATE NORMAL; ROULEAUX OCC
[2018-10-25 19:00] VITALS: BP 145/69
--- NOTE | 2018-10-25 19:19 | NUR ---
GREETED PATIENT AND INTRODUCED MYSELF. PATIENT IS SITTING UP IN CHAIR. FAMILY MEMBER AT BEDSIDE. O2 AT 2L VIA NC IN USE. DENIES ANY NEEDS AT THIS TIME. CALL LIGHT IN REACH.
--- NOTE | 2018-10-26 01:20 | NUR ---
PATIENT RESTING QUIETLY WITH EYES CLOSED. RESPIRATIONS EVEN. NO S/S OF DISTRESS. SR UP X 2. BED IN LOWEST POSITION. CALL LIGHT IN REACH.
--- NOTE | 2018-10-26 07:18 | NUR ---
SITTING UP IN BED. DENIES NEEDS. STATES SHE IS SOB WITH MOVEMENT. CALL LIGHT IN REACH
[2018-10-26 09:00] VITALS: BP 110/70
--- NOTE | 2018-10-26 11:13 | NUR ---
Nutrition Follow Up: NEEDLE MAKER was in room at the time of RD visit. Interview deferred at this time. Diet: Regular PO Intake: 50% meal avg BM: 10/24/18 Labs reviewed Meds noted including Prednisone Rec continue current diet. RD following.
--- NOTE | 2018-10-26 13:04 | NUR ---
SITTING IN WC IN ROOM FINISHING LUNCH. WEARING OXYGEN 2LNC. CALL LIGHT IN REACH
--- NOTE | 2018-10-26 17:49 | NUR ---
SITTING UP FINISHING SUPPER. STILL WEARING OXYGEN. FEEDS SELF. CALL LIGHT IN REACH
[2018-10-26 19:04] VITALS: BP 138/74
--- NOTE | 2018-10-26 19:04 | NUR ---
GREETED PATIENT AND INTRODUCED MYSELF. PATIENT IS LAYING IN BED IN SUPINE POSITION WITH O2 AT 2L VIA NC IN USE. PATIENT IS SHORT OF BREATH WHEN MOVING AROUND IN BED. O2 SATS AT 94. DENIES ANY FURTHER NEEDS AT THIS TIME. CALL LIGHT IN REACH.
[2018-10-26 19:07] VITALS: BP 95/60
--- NOTE | 2018-10-27 00:32 | NUR ---
PATIENT IS SOB AFTER GETTING UP TO GO TO BATHROOM. RESPIRATORY CONTACTED TO COME AND GIVE PATIENT PRN BREATHING TREATMENT.
--- NOTE | 2018-10-27 01:01 | NUR ---
PATIENTS BREATHING IS IMPROVED AFTER PRN BREATHING TREATMENT. PATIENT MORE RELAXED AND RESTING QUIETLY. WCTM. CALL LIGHT IN REACH.
[2018-10-27 07:55] VITALS: BP 137/68
--- NOTE | 2018-10-27 08:57 | NUR ---
PATIENT WORKING WITH PHYSICAL THERAPIST. PRN TYLENOL GIVEN PER PATIENT REQUEST
--- NOTE | 2018-10-27 13:01 | NUR ---
PATIENT SITTING UP AT BEDSIDE TO EAT LUNCH. VOICES NO NEEDS AT THIS TIME.
--- NOTE | 2018-10-27 13:01 | NUR ---
I have reviewed this patient and I concur with the Shift Assessment completed by the Licensed Practical Nurse today this shift.
--- NOTE | 2018-10-27 16:18 | NUR ---
PATIENT HELPED INTO BATHROOM. MIN TO MOD ASST OF ONE PERSON USING A WHEELED WALKER
[2018-10-27 19:36] VITALS: BP 150/68
--- NOTE | 2018-10-27 19:36 | NUR ---
GREETED PATIENT AND INTRODUCED MYSELF. PATIENT IS SITTING ON SIDE OF BED WITH O2 AT 2L IN USE VIA NC. HELPED PATIENT LAY DOWN IN BED AND REPOSITION FOR COMFORT. CALL LIGHT IN REACH. VITALS OBTAINED.
--- NOTE | 2018-10-27 21:46 | NUR ---
PATIENT AWAKE LAYING IN BED WATCHING TV. HOB AT 35 DEGREES. O2 IN USE VIA NC AT 2L. RESPIRATIONS EVEN. NO S/S OF DISTRESS. CALL LIGHT IN REACH.
--- NOTE | 2018-10-28 05:46 | NUR ---
PATIENT AWAKE AND LAYING IN BED. STILL CONTINUES TO SAY THAT MIDDLE OF HER BACK IS HURTING EVEN AFTER PRN PAIN MEDICATION. FIXED PT. A HOT PACK TO HELP RELIEVE DISCOMFORT. WCTM. CALL LIGHT IN REACH.
--- NOTE | 2018-10-28 07:35 | NUR ---
RECEIVED REPORT. ASSISTED WITH TRANSFER FROM BED TO CHAIR WITH MIN ASSIST. DYSPNEA WITH EXERTION NOTED, CONTINUES ON 2L VIA NC. STAYED WITH PT UNTIL BREATHING RETURNED TO BASELINE. CALL LIGHT WITHIN REACH, FALL PRECAUTIONS IN PLACE. WILL CONTINUE TO MONITOR
[2018-10-28 08:00] VITALS: BP 168/95
--- NOTE | 2018-10-28 11:31 | NUR ---
LYING IN BED HOB 45 DEGREES EYES CLOSED RESTING. CONTINUES ON 2L VIA NC. NO SIGNS OF DISTRESS NOTED. WILL CONTINUE TO MONITOR
--- NOTE | 2018-10-28 14:03 | NUR ---
ASSISTED WITH TRANSFER FROM W/C TO RECLINER IN ROOM WITH MINIMAL ASSIST. C/O BACK DISCOMFORT. NO OTHER NEEDS VOICED. WILL CONTINUE TO MONITOR
--- NOTE | 2018-10-28 16:02 | NUR ---
SITTING UP IN BED EYES CLOSED RESTING. NO SIGNS OF DISTRESS NOTED. CONTINUES ON 2L VIA NC. WILL CONTINUE TO MONITOR
--- NOTE | 2018-10-28 19:25 | NUR ---
PATIENT RECEIVED SITTING UP IN BED WATCHING TV. ASSESSMENT & VITAL SIGNS DONE. NO C/O PAIN OR DISTRESS. BED LOW. ALARM ON. BEDSIDE TABLE & CALL LIGHT WITHIN REACH. WILL CONTINUE TO MONITOR.
[2018-10-28 20:00] VITALS: BP 129/78
--- NOTE | 2018-10-29 01:19 | NUR ---
I have reviewed this patient and I concur with the Shift Assessment completed by the Licensed Practical Nurse today this shift.
--- NOTE | 2018-10-29 03:43 | NUR ---
PATIENT EYES CLOSED. RESPIRATIONS 18 & EVEN. O2 2LNC CONTINUOUS ON. BED LOW. BEDSIDE TABLE & CALL LIGHT WITHIN REACH. WILL CONTINUE TO MONITOR.
[2018-10-29 07:08] LABS: HEMATOCRIT 35.3 % (36.0-48.0); HEMOGLOBIN 10.6 g/dL (12-16); MCH 26.4 pg (26.0-34.0); MCV 87.8 fL (80.0-100.0); PLATELET COUNT 328 10x3/uL (130-400); RBC 4.02 10x6/uL (4.00-5.40); RDW 18.3 % (11.5-14.5); WBC 13.3 10x3/uL (4.8-10.8)
[2018-10-29 07:25] LABS: ANION GAP 8.4 mmol/L (8-16); CALCIUM 9.6 mg/dL (8.5-10.1); CARBON DIOXIDE 33.9 mmol/L (21.0-32.0); CREATININE - SERUM 1.2 mg/dL (0.6-1.3); POTASSIUM - SERUM 5.3 mmol/L (3.5-5.1)
--- NOTE | 2018-10-29 07:25 | NUR ---
received report. sitting up in bed alert and oriented x4. c/o sharp stabbing pains in thoracic region night nurse admininstered ultram 100mg. assisted in transfer from bed to chair, pt states sitting up in chair helped relieve some pain. call light and phone within reach, fall precautions in place. will continue to monitor
[2018-10-29 07:30] LABS: EOSINOPHILS 2 % (0-7); LYMPHOCYTES 25 % (15-50); MONOCYTES 8 % (2-11); NEUTROPHILS 63 % (40-80); PLATELET ESTIMATE NORMAL
[2018-10-29 08:20] VITALS: BP 132/59
--- NOTE | 2018-10-29 11:52 | NUR ---
IN [place] DECORATING MONTH BOARD WITH VERENA SHERWOOD. NO SIGNS OF DISTRESS NOTED
--- NOTE | 2018-10-29 14:24 | NUR ---
OT SHINE ASSISTED PT WITH SHOWER.
[2018-10-29 20:22] VITALS: BP 155/70
--- NOTE | 2018-10-29 23:50 | NUR ---
THE PATIENT WAS SITTING IN HER BEDSIDE CHAIR WHEN STAFF ENTERED HER ROOM. CALL LIGHT WITHIN REACH. THE PATIENT WAS EDUCATED TO CALL FOR ASSISTANCE WITH ANYTHING SHE NEEDS. THE PATIENT DEMONSTRATES UNDERSTANDING VIA TEACHBACK METHOD. THE PATIENT APPEARS COMFORTABLE WITH NO QUESTIONS OR COCNERNS AT THIS TIME.
[2018-10-30 07:44] LABS: ANION GAP 8.3 mmol/L (8-16); CALCIUM 9.4 mg/dL (8.5-10.1); CREATININE - SERUM 1.4 mg/dL (0.6-1.3); POTASSIUM - SERUM 5.3 mmol/L (3.5-5.1)
[2018-10-30 08:00] VITALS: BP 108/56
--- NOTE | 2018-10-30 08:00 | NUR ---
SHIFT ASSMT COMPLETED.UP OOB TO CHAIR FOR BREAKFAST.
--- NOTE | 2018-10-30 15:10 | NUR ---
NUTRITION F/U PT TOLERATING REG DIET, 100% INTAKE RECENT MEALS. WILL CONTINUE TO PROVIDE DIET, HONOR FOOD PREFERENCES. RD FOLLOWING
--- NOTE | 2018-10-30 16:00 | NUR ---
SITTING UP IN CHAIR AFTER THERAPY.
--- NOTE | 2018-10-30 20:00 | NUR ---
PATIENT RECEIVED SITTING UP IN CHAIR AT BEDSIDE. ASSESSMENT & VITAL SIGNS DONE. C/O SHORTNESS OF BREATHE, ATIVAN GIVEN.ALRM ON. CALLL LIGHT WITHIN REACH. WILL CONTINUE TO MONITOR.
[2018-10-30 20:02] VITALS: BP 130/85
--- NOTE | 2018-10-31 04:56 | NUR ---
PATIENT EYES CLOSED. RESPIRATIONS 18 & EVEN. BED LOW. CALL LIGHT WITHIN REACH. WILL CONTINUE TO MONITOR.
[2018-10-31 08:02] VITALS: BP 140/61
--- NOTE | 2018-10-31 12:09 | RHP ---
PATIENT: VAN FARIA MEDICAL RECORD: [id number] ACCOUNT: [id number] LOCATION:[id number] : 48 ADMISSION DATE: 10/24/18 REHABILITATION HISTORY AND PHYSICAL EXAMINATION POST ADMISSION PHYSICIAN EXAMINATION DATE OF ADMISSION: 10/24/2018 ADMITTING DIAGNOSIS: Acute exacerbation of chronic obstructive pulmonary disease. HISTORY OF PRESENT ILLNESS: The patient is a 68-year-old female patient who has a direct admit from her PCP office on 10/12/2018, complaining of increased dyspnea over the previous 2 weeks. She had been having some sputum production and some fever. The patient states she had been dealing with some mid back pain between her shoulder blades. She had been requiring pain medicine, which has compromised her health. She has COPD with his pain and narcotics lately. She has been down and not very active. She has got a past medical history of COPD, asthma, emphysema. She is a former smoker for about 22 years. She does not use oxygen at home. She does have Advair, Spiriva and some p.o. steroids. She was in mild distress, decreased breath sounds and wheezes. Chest x-ray showed prominent pulmonary interstitium with a slightly increased interstitial opacification of the right base. An evolving pneumonia cannot be excluded. She also had a compression fracture of T2. Her D-dimer was high, but her CTA with PE was negative. Pulmonary was consulted. Neurosurgery was also consulted. She is planned to have a kyphoplasty on an outpatient basis because of the compression at T2. Previously, she was moderate independent with ADLs and mobility. She lives with her spouse, has a paid caregiver that comes in Monday through Monday for 3-4 hours. Currently, she is mod-to-max assist for ADLs and mobility. She has increased O2 needs and currently is on 2-4 liters to maintain a sat greater than 90%. She has ambulated 250, but has been requiring O2, 40% assist from PT, has had to stop several times. She wants to regain her strength and hopefully be able to return back home. COMORBIDITIES: Include leukocytosis, hypernatremia, prerenal azotemia, hyperlipidemia, anemia, left extremity swelling, shortness of breath, fatigue, weakness, psoriatic arthritis, debility, acute exacerbation of asthma and possible right lower lobe pneumonia. PAST MEDICAL HISTORY: Significant for COPD, emphysema, asthma, history of reflux, arthritis, got a history of psoriasis, depression and anxiety. PAST SURGICAL HISTORY: Includes tonsillectomy, adenoidectomy and hysterectomy. ALLERGIES: HYDROCODONE AND LATEX. CURRENT MEDICATIONS: She is on a prednisone tapering dose. She is on Floranex daily. She is on Benicar 20 mg daily, Mevacor 10 mg daily, Flonase nasal spray 2 sprays daily, Protonix 40 mg daily, trazodone 100 mg at bedtime, MiraLax 17 gm in 8 ounces of water twice daily, Singulair 10 mg at bedtime, Robaxin 500 mg b.i.d., Rama 60 mg b.i.d., Mucinex 1200 mg b.i.d., Neurontin 300 mg b.i.d., Lexapro 20 mg at bedtime, Bactrim 1 tab b.i.d., Ventolin updrafts as needed. She is on a dextromethorphan cough medicine 30 mg every 12 hours p.r.n. cough, acetaminophen 650 mg every 6 hours p.r.n. and tramadol 50 mg every 6 hours as needed. HISTORY AND PHYSICAL [id number] VAN FARIA HABITS: Was a tobacco smoker for approximately 42 years. FAMILY HISTORY: Noncontributory. SOCIAL HISTORY: The patient hopes to return back home. Once again, she does have a caregiver throughout the week. REVIEW OF SYSTEMS: GENERAL: Does complain of weakness and fatigue. HEENT: Denies cold, cough, or congestion at this time. CARDIOVASCULAR: Denies any chest pain. PHYSICAL EXAMINATION: VITAL SIGNS: Her vitals show temperature 98.4, her pulse is 93, respirations 18, blood pressure 137/44 and sat is 95%. GENERAL: An elderly female, in no acute distress upon exam. HEENT: Normocephalic and atraumatic. Mucosa moist. NECK: Supple, with no lymphadenopathy. LUNGS: Coarse breath sounds bilaterally with decreased breath sounds in the bases. HEART: Regular rate and rhythm. No murmurs, rubs or gallops. ABDOMEN: Benign. EXTREMITIES: No clubbing, cyanosis or edema. NEUROLOGIC: She does have difficulty rising from a bed to chair and shortness of breath with ambulation. ASSESSMENT: This is a 68-year-old female patient admitted to rehab with a working diagnosis of exacerbation of chronic obstructive pulmonary disease. The patient has potential to make improvement. We instituted the following multiple disciplinary therapies including, but not limited to physical, occupational, respiratory, speech, nutritional services, prosthetics and orthotics. Given her complex medical condition and risk for more complications, rehabilitation services cannot be provided at a low level of care such as senior living facility. PLAN: 1. Admit to [facility] rehab for inpatient therapy to include the following disciplines: A. Physical therapy to improve gait, all transfer skills and bed mobility to a modified independent level. B. Occupational therapy to a modified independent level. C. Case management to assist with discharge planning and placement options. D. Nutrition to assist with nutritional needs. E. Rehabilitation nursing to assist in monitoring the patient's underlying medical conditions and to assist with any type of bowel and bladder management. 2. The patient's current medication and medical care will be continued. 3. The patient will be placed on standard fall precautions. 4. The patient's estimated length of stay is approximately 7-10 days. 5. We will discuss the patient with care team staff meeting this week and I will see again in the a.m. TRANSINT:[id number] Voice Confirmation ID: [id number] DOCUMENT ID: [id number] HISTORY AND PHYSICAL [id number] VAN FARIA notes whether there has been none or any medical/functional change since admission: - No change since the PAS JORGE attests patient continues to be appropriate for IRF: - Remains appropriate for the [facility] JANNIE CALVO MD at 1209 CC: [id number] DICTATION DATE: 10/25/18 0708 CRYPTOLOGIC TECHNICIAN: 10/25/18 0837 ADM IN [facility] [address] [id number]
[2018-10-31 19:18] VITALS: BP 184/79
--- NOTE | 2018-10-31 19:53 | NUR ---
ROLAND RECEIVED SITTING UP IN CHAIR. ATIVAN JUST GIVEN BY PREVIOUS NURSE FOR ANXIETY. PAIN PATCH TAKEN OFF PER PATIENT REQUEST. PER PATIENT REQUEST HOT PACK GIVEN FOR BACK PAIN. FAMILY ARRRIVED. VITAL SIGNS & ASSESSMENT DONE. ALARM ON. CALLL LIGHT WITHIN REACH. WILL CONTINUE TO MONITOR.
--- NOTE | 2018-11-01 03:56 | NUR ---
PATIENRT EYES CLOSED. RESPIRATIONS 20 & EVEN. BED LOW. ALARM ON.BEDSIDE TABLE & CALL LIGHT WITHIN REACH. WILL CONTINUE TO MONITOR.
--- NOTE | 2018-11-01 04:39 | NUR ---
I have reviewed this patient and I concur with the Shift Assessment completed by the Licensed Practical Nurse today this shift.
[2018-11-01 07:23] LABS: ANION GAP 9.9 mmol/L (8-16); CALCIUM 9.6 mg/dL (8.5-10.1); CARBON DIOXIDE 30.6 mmol/L (21.0-32.0); CREATININE - SERUM 1.1 mg/dL (0.6-1.3)
[2018-11-01 07:30] LABS: POTASSIUM - SERUM 4.5 mmol/L (3.5-5.1)
[2018-11-01 07:50] LABS: BASOPHILS 0.3 % (0-2); EOSINOPHILS 4.1 % (0-7); HEMATOCRIT 35.9 % (36.0-48.0); HEMOGLOBIN 10.9 g/dL (12-16); IMMATURE GRANULOCYTES 6.7 % (0-5); LYMPHOCYTES 24.2 % (15-50); MCH 26.8 pg (26.0-34.0); MCHC 30.4 g/dL (31.0-37.0); MCV 88.4 fL (80.0-100.0); MEAN PLATELET VOLUME 8.9 fL (7.4-10.4); MONOCYTES 8.8 % (2-11); NEUTROPHILS 55.9 % (40-80); PLATELET COUNT 324 10x3/uL (130-400); RBC 4.06 10x6/uL (4.00-5.40); RDW 18.2 % (11.5-14.5); WBC 9.3 10x3/uL (4.8-10.8)
[2018-11-01 08:00] VITALS: BP 115/70
--- NOTE | 2018-11-01 16:42 | NUR ---
CLINICAL UPDATES FAXED TO DEYVI CHINCHILLA AT , AUTH. #[id number] WITH TENATIVE DISCHARGE DATE 11/06/18 WITH CONFORMATION RECIEVED. WILL CONTINUE TO FOLLOW WITH PATIENT.
[2018-11-02 01:40] VITALS: BP 107/62
--- NOTE | 2018-11-02 06:49 | NUR ---
PT IN BED LOWEST POSITION, EYES CLOSED, AROUSES EASILY, RESPIRATIONS EVEN AND UNLABORED, NO IMMEDIATE NEEDS NOTED, FLUIDS AND CALL LIGHT WITHIN REACH
[2018-11-02 08:00] VITALS: BP 109/57
--- NOTE | 2018-11-02 14:58 | NUR ---
RESTING QUIETLY IN BED. KEEPS ASKING FOR PAIN MEDS BEFORE THEY ARE SCHEDULED. WHEN NURSE CHECKS ON PT, SHE IS SITTING UP IN CHAIR ASLEEP WITH N S/S DISTRESS OR PAIN. OXYGEN IN PLACE AT 2LNC. PT USES WC FOR MOTION ASST TO GO TO BATHROOM. CALL LIGHT IN REACH
[2018-11-02 22:01] VITALS: BP 117/52
--- NOTE | 2018-11-02 22:56 | NUR ---
PATIENT RECEIVED SITTING UP IN CHAIR. VITAL SIGNS & ASSESSMENT DONE. BED LOW. ALARM ON. CALL LIGHT & BEDSIDE TABLE. WITHIN REACH. WILL CONTINUE TO MONITOR.
--- NOTE | 2018-11-02 23:25 | NUR ---
RESTING IN BED WITH RESPIRATIONS UNLABORED. NO DISTRESS NOTED. CALL LIGHT IN REACH.
--- NOTE | 2018-11-03 02:27 | NUR ---
PATIENT EYES CLOSED. RESPIRATIONS 20 & EVEN. BED LOW. CALL LIGHT WITHIN REACH. WILL CONITINUE TO MONITOR.
[2018-11-03 08:00] VITALS: BP 161/41
--- NOTE | 2018-11-03 08:00 | NUR ---
SHIFT ASSMT COMPLETED.STATED WANTS TO SLEEP-IN TODAY.CL IN REACH.BREAKFAST AT BEDSIDE.
--- NOTE | 2018-11-03 10:00 | NUR ---
AWAKE AND READY FOR BREAKFAST.
--- NOTE | 2018-11-03 12:00 | NUR ---
SITTING UP IN CHAIR EATING LUNCH.CL IN REACH.
--- NOTE | 2018-11-03 16:00 | NUR ---
RESTING QUIETLY.FRIENDS VISITING.
--- NOTE | 2018-11-03 19:41 | NUR ---
PT SITTING UP IN WHEELCHAIR. CL IN REACH. NO DISTRESS NOTED. RESP EVEN AND UNLABORED. WCTM
[2018-11-03 20:13] VITALS: BP 131/65
--- NOTE | 2018-11-04 00:42 | NUR ---
I have reviewed this patient and I concur with the Shift Assessment completed by the Licensed Practical Nurse today this shift.
--- NOTE | 2018-11-04 00:53 | NUR ---
PATIENT RESTING QUIETLY WITH EYES CLOSED. 1.5 O2 IN USE VIA NC. RESPIRATIONS EVEN. NO S/S OF DISTRESS. SR UP X 2. BED IN LOWEST POSITION. CALL LIGHT IN REACH.
--- NOTE | 2018-11-04 03:32 | NUR ---
pt resting quietly. cl in reach. no distress noted. eyes closed. o2 on 2l. wctm
--- NOTE | 2018-11-04 04:11 | NUR ---
CONTACTED RESPIRATORY TO GIVE PATIENT PRN BREATHING TREATMENT. PATIENTS O2 SATURATION IS 97. PASSED THIS INFORMATION ON TO RESPIRATORY.
[2018-11-04 08:00] VITALS: BP 102/62
--- NOTE | 2018-11-04 08:00 | NUR ---
SHIFT ASSMT COMPLETED.
--- NOTE | 2018-11-04 12:00 | NUR ---
SITTING UP EATING LUNCH.
--- NOTE | 2018-11-04 19:53 | NUR ---
PATIENT IS RESTING IN HER BED WITH HER EYES CLOSED.
[2018-11-04 21:00] VITALS: BP 125/64
--- NOTE | 2018-11-05 | NUR ---
PATIENT IS RESTING IN BED WITH EYES CLOSED. NO SIGNS OF DISTRESS.
--- NOTE | 2018-11-05 03:40 | NUR ---
PATIENT ASSISTED TO THE BATHROOM. NO OTHER NEEDS AT THIS TIME.
[2018-11-05 06:59] LABS: BASOPHILS 0.2 % (0-2); HEMATOCRIT 32.3 % (36.0-48.0); HEMOGLOBIN 9.7 g/dL (12-16); IMMATURE GRANULOCYTES 1.9 % (0-5); LYMPHOCYTES 13.1 % (15-50); MCH 26.6 pg (26.0-34.0); MCV 88.5 fL (80.0-100.0); MEAN PLATELET VOLUME 9.1 fL (7.4-10.4); NEUTROPHILS 67.8 % (40-80); RBC 3.65 10x6/uL (4.00-5.40); RDW 18.5 % (11.5-14.5); WBC 9.6 10x3/uL (4.8-10.8)
[2018-11-05 07:03] LABS: PLATELET COUNT 253 10x3/uL (130-400)
[2018-11-05 07:08] LABS: CALC OSMOLALITY 279 mosm/kg (275-300); CALCIUM 8.9 mg/dL (8.5-10.1); CARBON DIOXIDE 30.9 mmol/L (21.0-32.0); CHLORIDE - SERUM 105 mmol/L (98-107); CREATININE - SERUM 0.8 mg/dL (0.6-1.3); GLUCOSE 103 mg/dL (74-106); POTASSIUM - SERUM 4.6 mmol/L (3.5-5.1); SODIUM 140 mmol/L (136-145); UREA NITROGEN 16 mg/dL (7-18); eGFR NON AFRICAN AMERICAN 75 mL/min (90-120)
[2018-11-05 08:00] VITALS: BP 115/52
--- NOTE | 2018-11-05 08:40 | NUR ---
SITTING UP IN ROOM FOR BREAKFAST. WEARING OXYGEN AT 2LNC. CALL LIGHT IN REACH
--- NOTE | 2018-11-05 16:07 | NUR ---
JUST GOT BACK TO ROOM AFTER THERAPY. IS SOB WITH MINIMAL EXERTION. PAIN MEDS GIVEN DIRECTED. CALL LIGHT IN REACH
[2018-11-05 19:46] VITALS: BP 147/70
--- NOTE | 2018-11-05 20:00 | NUR ---
PATIENT RECEIVED SITTING UP IN BED. VITAL SIGNS & ASSESSMENT DONE. NO C/O PAIN OR DISTRESS. BED LOW. BEDSIDE TABLE & CALL LIGHT WITHIN REACH. WILL CONTINUE TO MONITOR.
--- NOTE | 2018-11-06 01:55 | NUR ---
PATIENT EYES CLOSED. RESPIRATIONS 18 & EVEN. BED LOW. ALARM ON. BEDSIDE TABLE & CALL LIGHT WITHIN REACH. WILL CONTINUE TO MONITOR.
[2018-11-06 08:00] VITALS: BP 165/75
--- NOTE | 2018-11-06 08:15 | NUR ---
SITTING UP IN ROOM TALKING TO ROOM MATE. WEARING OXYGEN AT 2LNC. SOB WITH MINIMAL EXERTION. CALL LIGHT IN REACH
[2018-11-06] MEDS ORDERED: MEDROL DOSE PACK4 MG PO (09:38)
[2018-11-06] MEDS ORDERED: ALBUTEROL2.5 MG/3 M UPD (09:39)
--- NOTE | 2018-11-06 10:03 | NUR ---
PATIENT DISCHARGING HOME WITH FAMILY. [facility] WILL PROVIDE THERAPY AT HOME. [facility] WILL DELIVER O2 AND A WHEELCHAIR TO PATIENT. DR. CARPENTER 11/14/18 @ 3:30, DR. BISHOP 11/07/18 @ 10:00, DR. LUCAS 12/04/18 @ 1:00. PATIENT CHOICE FORM AND [facility] FORMS SIGNED, COPY GIVEN TO PATIENT AND FILED IN CHART. DISCHARGE INSTRUCTION WITH [employer] FAXED [facility] AND REVIEWED WITH PATIENT. ORDERS FAXED TO [facility] FOR O2 AND WHEELCHAIR
--- NOTE | 2018-11-06 11:33 | NUR ---
DISCHARGE CLINICALS FAXED TO CATHERINE AT , AUTH # [id number] WITH CONFORMATION RECIEVED
--- NOTE | 2018-11-06 14:00 | NUR ---
DC HOME WITH ALL PERSONAL BELONGINGS. CAME TO GET HER. REVIEWED MEDS, DC PLAN AND FOLLOW UP APPTS WITH PT. SHE HAS OXYGEN AND WC NOW FROM [employer] FOR HOME USE. MEDS CALLED INTO PHARMACY. DENIES NEEDS OR QUESTIONS AT DC.
== END 2018-11-06 14:00 | disposition home health service (06) | DRG 190 ==
LOC: D.REHAB 13:45
PROVIDERS: ADMIT Emergency Medicine; ATTEND Emergency Medicine
DX: J44.1 Chronic obstructive pulmonary disease with (acute) exacerbation (principal); J96.01 Acute respiratory failure with hypoxia; J18.1 Lobar pneumonia, unspecified organism; E87.0 Hyperosmolality and hypernatremia; D72.829 Elevated white blood cell count, unspecified; R79.89 Other specified abnormal findings of blood chemistry; E78.5 Hyperlipidemia, unspecified; D64.9 Anemia, unspecified; R06.02 Shortness of breath; R53.1 Weakness; R53.81 Other malaise; L40.50 Arthropathic psoriasis, unspecified; R22.9 Localized swelling, mass and lump, unspecified; M50.30 Other cervical disc degeneration, unspecified cervical region; I10 Essential (primary) hypertension

== ENCOUNTER 2018-11-08 15:36 | Emergency (ER) | payer OTHER, MEDICAID ==
[~2018-11-08] VITALS: Ht 152.4 cm; Wt 70.5 kg
[~2018-11-08 15:36] MED LIST changes: +ALBUTEROL2.5 MG/3 M UPD; +MEDROL DOSE PACK4 MG PO
[2018-11-08 15:38] VITALS: Ht 152.4 cm; Wt 70.5 kg
[2018-11-08 15:54] LABS: BASOPHILS 0.2 % (0-2); EOSINOPHILS 0.1 % (0-7); HEMATOCRIT 36.2 % (36.0-48.0); HEMOGLOBIN 11.4 g/dL (12-16); IMMATURE GRANULOCYTES 2.7 % (0-5); LYMPHOCYTES 8.9 % (15-50); MCH 27.1 pg (26.0-34.0); MCHC 31.5 g/dL (31.0-37.0); MCV 86.2 fL (80.0-100.0); MEAN PLATELET VOLUME 8.4 fL (7.4-10.4); NEUTROPHILS 84.1 % (40-80); PLATELET COUNT 296 10x3/uL (130-400); RDW 17.6 % (11.5-14.5); WBC 10.4 10x3/uL (4.8-10.8)
[2018-11-08 16:04] LABS: INR 0.95 (0.85-1.17); PROTIME 12.2 SECONDS (11.6-15.0)
[2018-11-08 16:12] LABS: ALBUMIN 3.1 g/dL (3.4-5.0); ALKALINE PHOSPHATASE 86 U/L (46-116); ALT (SGPT) 22 U/L (10-68); BILIRUBIN - TOTAL 0.33 mg/dL (0.2-1.3); CALC OSMOLALITY 283 mosm/kg (275-300); CALCIUM 9.5 mg/dL (8.5-10.1); CARBON DIOXIDE 34.3 mmol/L (21.0-32.0); CHLORIDE - SERUM 100 mmol/L (98-107); CREATININE - SERUM 0.9 mg/dL (0.6-1.3); GLUCOSE 133 mg/dL (74-106); POTASSIUM - SERUM 4.5 mmol/L (3.5-5.1); PROTEIN - SERUM 7.5 g/dL (6.4-8.2); SODIUM 141 mmol/L (136-145); UREA NITROGEN 16 mg/dL (7-18); eGFR NON AFRICAN AMERICAN 66 mL/min (90-120)
[2018-11-08 16:35] LABS: CKMB 1.2 U/L (0.0-3.6); CREATINE KINASE 70 UL (21-215); PRO BNP 1710 pg/mL (0-125); TROPONIN-I < 0.017 ng/mL (0.000-0.060)
[2018-11-08] MEDS ORDERED: NORVASC5 MG PO (18:28)
[2018-11-08 18:49] VITALS: BP 173/83
== END 2018-11-08 18:39 | disposition home or self-care (01) ==
LOC: D.ER 15:36
PROVIDERS: Family Medicine
DX: J44.9 Chronic obstructive pulmonary disease, unspecified (principal); I10 Essential (primary) hypertension

== ENCOUNTER 2018-12-19 18:09 | Emergency (ER) | payer OTHER, MEDICAID ==
[~2018-12-19] VITALS: Ht 152.4 cm; Wt 68.2 kg
[~2018-12-19 18:09] MED LIST changes: +NORVASC5 MG PO
[2018-12-19 18:17] VITALS: Ht 152.4 cm; Wt 68.2 kg
[2018-12-19 18:54] LABS: APPEARANCE CLEAR (CLEAR); BILIRUBIN NEGATIVE (NEGATIVE); COLOR YELLOW (YELLOW); GLUCOSE NEGATIVE (NEGATIVE); KETONE NEGATIVE (NEGATIVE); NITRITE POSITIVE (NEGATIVE); PROTEIN NEGATIVE (NEGATIVE); UROBILINOGEN NORMAL (NORMAL)
[2018-12-19 18:55] LABS: BACTERIA MANY /hpf (NONE SEEN); EPITHELIAL CELLS 0-5 /hpf (0-5); RED CELLS - URINE OCC /hpf (0-5); WHITE CELLS - URINE 0-5 /hpf (0-5)
[2018-12-19] MEDS ORDERED: KEFLEX500 MG PO (19:18)
[2018-12-19 20:10] VITALS: BP 124/81
== END 2018-12-19 20:11 | disposition home or self-care (01) ==
LOC: D.ER 18:09
PROVIDERS: Family Medicine
DX: N39.0 Urinary tract infection, site not specified (principal)

== ENCOUNTER 2018-12-20 03:38 | Emergency (ER) | payer OTHER, MEDICAID ==
[~2018-12-20] VITALS: Ht 152.4 cm; Wt 68.2 kg
[~2018-12-20 03:38] MED LIST changes: +KEFLEX500 MG PO
[2018-12-20 03:44] VITALS: Ht 152.4 cm; Wt 68.2 kg
[2018-12-20 05:06] VITALS: BP 140/74
== END 2018-12-20 05:06 | disposition home or self-care (01) ==
LOC: D.ER 03:38
DX: M79.602 Pain in left arm (principal)